=== PATIENT | female | born 1990 | race Caucasian/White ===

== ENCOUNTER 2020-05-09 00:06 | Emergency (ER) | payer MEDICAID, SELFPAY ==
[2020-05-09 00:16] VITALS: BP 124/88; PULSE 80; RESP 18; TEMP 37.1; O2SAT 99; BMI 25.8
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
[2020-05-09 01:02] VITALS: BP 106/65; PULSE 72; RESP 15; O2SAT 99
[2020-05-09] MEDS: Ketorolac Tromethamine 60 MG/2 ML VIAL IM (01:36)
== END 2020-05-09 02:19 | disposition home or self-care (01) ==
PROVIDERS: Emergency Provider Emergency Medicine
DX: S13.9XXA Sprain of joints and ligaments of unspecified parts of neck, initial encounter (principal); M54.2 Cervicalgia; V43.52XA Car driver injured in collision with other type car in traffic accident, initial encounter; Y92.410 Unspecified street and highway as the place of occurrence of the external cause
CPT/HCPCS: 72040; 96372; 99284; J1885

== ENCOUNTER 2020-06-07 15:13 | Outpatient (REF) | payer MEDICAID, SELFPAY | END 2020-06-07 15:14 | disposition home or self-care (01) | LOC: HO.LAB 15:13 | PROVIDERS: Visit Provider Internal Medicine | DX: Z20.828 Contact with and (suspected) exposure to other viral communicable diseases (principal) | CPT/HCPCS: C9803; U0003 ==

== ENCOUNTER 2020-10-07 10:12 | Emergency (ER) | payer MEDICAID, SELFPAY ==
[2020-10-07 10:40] VITALS: BP 116/68; PULSE 74; RESP 16; TEMP 37.1; O2SAT 99; BMI 26.5
--- NOTE | 2020-10-07 11:13 | ED.HA ---
HPI - Headache General Chief Complaint: Headache Stated Complaint: HEADACHE,NAUSEA Time Seen by Provider: 10/07/20 10:41 Source: patient Mode of arrival: ambulatory Limitations: no limitations History of Present Illness HPI Narrative: 30 y/o female with history of anemia presents with frontal headache for the last 2 days. She states she woke up with it. It is associated with nausea, vomiting, photophobia and sensitivity to noise. She took Tylenol and nausea medication yesterday with some improvement but woke up this morning and it was worse again. 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 She tested negative for COVID there today. She was sent home for worsening headache. No fever, chills, abdominal pain, cough, SOB, dizziness, numbness, tingling or trauma. No history of migraines. MD elicited complaint: headache Onset (ago): day(s) (2) Onset description: suddenly Location: frontal Severity: moderate Quality & Timing: aching and throbbing Exacerbating factors: light, noise and other (bending down) Relieving factors: dark room and other (tylenol ) Context: occurred at rest Associated symptoms: nausea, vomiting, photophobia and sensitivity to sound Treatments prior to arrival: none Related Data Previous Rx's Medication Instructions Recorded cyclobenzaprine 10 mg PO BEDTIME PRN #10 tab 05/09/20 ibuprofen 600 mg PO Q8H PRN #10 tab 05/09/20 kdbjrcuhmp-xpbllljubcwgd-qwkm 1 cap PO Q6H PRN #10 cap 10/07/20 [Fioricet] ondansetron HCl [Zofran] 4 mg PO Q8H PRN #8 tab 10/07/20 Allergies Allergy/AdvReac Type Severity Reaction Status Date / Time No Known Allergies Allergy Verified 05/09/20 00:15 [No Known Allergies*] Review of Systems Review of Systems: Constitutional: No Fever, No Chills ENT/Mouth: No sore throat, No Rhinorrhea, No Swallowing Difficulty Eyes: No Eye Pain, No Swelling, No Redness Cardiovascular: No Chest Pain, No SOB, No Orthopnea, No Edema Respiratory: No Cough, No Sputum, No Wheezing, No dyspnea Gastrointestinal: + Nausea, + Vomiting, No Diarrhea, No abdominal Pain, No Hematochezia, No Melena Genitourinary: No Dysuria, No Urinary Frequency, No Hematuria Musculoskeletal: No joint pain, No Myalgias Skin: No Skin Lesions, No rash Neuro: + Weakness (generalized), No Numbness, No Dizziness, + Headache Psych: No Anxiety/Panic, No Depression Heme/Lymph: No Bruising, No Lymphadenopathy Endocrine: No Polyuria, No Polydipsia PMF Past Medical History Attestation statement: The following information was validated with the patient. Medical History Anemia Social History Social History Alcohol intake: unknown Smoking Status: Never smoker Use of substances other than those prescribed or required for medical reasons: No Advance Directives: No Advance Directives Information Provided: No Physical Exam Vital Signs: Vital Signs: Last Vital Signs Temp 98.7 F 10/07/20 10:40 Pulse 74 10/07/20 10:40 Resp 16 10/07/20 10:40 BP 116/68 10/07/20 10:40 Pulse Ox 99 10/07/20 10:40 Body Mass Index 26.5 Appearance: Alert. Oriented X3. No acute distress. Eyes: Pupils equal, round and reactive to light. EMOI, no nystagmus ENT: Pharynx normal. Neck: Normal inspection. Neck supple. CVS: Normal heart rate and rhythm. Pulses normal. Respiratory: No respiratory distress. Breath sounds normal. Abdomen: Soft and nontender. +BS x4 Skin: Skin warm and dry. Normal skin color. Normal skin turgor. No rashes. Extremities: No lower extremity edema. Neuro: Oriented X 3. No motor deficit. No sensory deficit. Steady gait. Course Course Course Narrative: 30 y/o female presenting with headache, N/V and photophobia. Clinical picture consistent with migraine headache. Will treat with Toradol, Benadryl and Reglan as well as IVF. She appears well. No signs/symptoms of meningitis. No AMS or focal deficits. Will check labs and urine . Patient agreeable with plan. Reevaluation(s) Reevaluation #1: Lab workup is unremarkable. Her symptoms have significantly improved. She is stable for discharge with plans to f/u with her PCP this week. Fiorcet and Zofran rx provided. Patient agrees with plan. MDM - Headache Lab Data Result diagrams: 10/07/20 11:16 10/07/20 11:16 Labs: Lab Results 10/07/20 10/07/20 10/07/20 Range/Units 11:16 11:16 11:36 WBC 7.1 (4.8-10.8) X10*3/uL RBC 4.02 L (4.20-5.50) X10*6/uL Hgb 12.7 (12.0-16.0) g/dl Hct 39.1 (37-47) % MCV 97.3 (80-98) fL MCH 31.6 (27.0-33.0) pg MCHC 32.5 (31.0-35.0) g/dl RDW 11.7 (11.0-16.0) % Plt Count 205 (160-400) X10*3/uL MPV 11.4 (9.4-12.3) fL Immature Gran % (Auto) 0.1 (0.0-0.4) % Neut % (Auto) 64.6 (45-73) % Lymph % (Auto) 22.6 (20-40) % [place] % (Auto) 11.3 H (2-11) % Eos % (Auto) 1.1 (0-4) % Baso % (Auto) 0.3 (0-2) % Lymph # (Auto) 1.6 (1.2-4.9) X10*3/uL [place] # (Auto) 0.8 (0.1-1.2) X10*3/uL Eos # (Auto) 0.1 (0.0-0.4) X10*3/uL Baso # (Auto) 0.0 (0.0-0.2) X10*3/uL Abs Immat Gran (auto) 0.01 (0.00-0.03) X10*3/uL Absolute Neuts (auto) 4.6 (2.0-8.3) X10*3/uL Absolute Nucleated RBC 0.000 (0.0-0.012) X10*3/uL Nucleated RBC % (auto) 0.0 (0.0-0.2) /100WBC Sodium 141 (135-145) mmol/L Potassium 4.6 (3.3-5.1) mmol/L Chloride 109 H (96-108) mmol/L Carbon Dioxide 24 (22-29) mmol/L Anion Gap 13 (12-20) BUN 14 (9-16) mg/dL Creatinine 0.83 (0.5-1.4) mg/dL Estim Creat Clear Calc 92.6 Estimated GFR > 60 Random Glucose 77 (60-115) mg/dL Calcium 8.7 (8.4-10.2) mg/dL Magnesium 1.8 (1.6-2.6) mg/dL Total Bilirubin 0.7 (0.0-1.0) mg/dL Direct Bilirubin 0.2 (0.0-0.5) mg/dL AST 18 (5-31) U/L ALT 10 (0-31) U/L Alkaline Phosphatase 43 (39-117) U/L Total Protein 7.2 (6.5-8.0) g/dL Albumin 4.3 (3.5-5.0) g/dL Urine Color YELLOW Urine Appearance CLEAR Urine pH 6.0 (5.0-8.0) Ur Specific [place] 1.025 (1.005-1.025) Urine Protein NEG (NEG-TRACE) MG/DL Urine Glucose (UA) NEG (NEG) MG/DL Urine Ketones NEG (NEG) MG/DL Urine Blood NEG (NEG) Urine Nitrite NEG (NEG) Ur Leukocyte Esterase NEG (NEG) Urine Test (NEGATIVE) 10/07/20 Range/Units 11:36 WBC (4.8-10.8) X10*3/uL RBC (4.20-5.50) X10*6/uL Hgb (12.0-16.0) g/dl Hct (37-47) % MCV (80-98) fL MCH (27.0-33.0) pg MCHC (31.0-35.0) g/dl RDW (11.0-16.0) % Plt Count (160-400) X10*3/uL MPV (9.4-12.3) fL Immature Gran % (Auto) (0.0-0.4) % Neut % (Auto) (45-73) % Lymph % (Auto) (20-40) % [place] % (Auto) (2-11) % Eos % (Auto) (0-4) % Baso % (Auto) (0-2) % Lymph # (Auto) (1.2-4.9) X10*3/uL [place] # (Auto) (0.1-1.2) X10*3/uL Eos # (Auto) (0.0-0.4) X10*3/uL Baso # (Auto) (0.0-0.2) X10*3/uL Abs Immat Gran (auto) (0.00-0.03) X10*3/uL Absolute Neuts (auto) (2.0-8.3) X10*3/uL Absolute Nucleated RBC (0.0-0.012) X10*3/uL Nucleated RBC % (auto) (0.0-0.2) /100WBC Sodium (135-145) mmol/L Potassium (3.3-5.1) mmol/L Chloride (96-108) mmol/L Carbon Dioxide (22-29) mmol/L Anion Gap (12-20) BUN (9-16) mg/dL Creatinine (0.5-1.4) mg/dL Estim Creat Clear Calc Estimated GFR Random Glucose (60-115) mg/dL Calcium (8.4-10.2) mg/dL Magnesium (1.6-2.6) mg/dL Total Bilirubin (0.0-1.0) mg/dL Direct Bilirubin (0.0-0.5) mg/dL AST (5-31) U/L ALT (0-31) U/L Alkaline Phosphatase (39-117) U/L Total Protein (6.5-8.0) g/dL Albumin (3.5-5.0) g/dL Urine Color Urine Appearance Urine pH (5.0-8.0) Ur Specific [place] (1.005-1.025) Urine Protein (NEG-TRACE) MG/DL Urine Glucose (UA) (NEG) MG/DL Urine Ketones (NEG) MG/DL Urine Blood (NEG) Urine Nitrite (NEG) Ur Leukocyte Esterase (NEG) Urine Test NEGATIVE (NEGATIVE) Discharge Plan Discharge Clinical Impression: Migraine Qualifiers: Migraine type: unspecified Status migrainosus presence: without status migrainosus Intractability: not intractable Qualified Code(s): G43.909 - Migraine, unspecified, not intractable, without status migrainosus Patient Disposition: Home, Self-Care Instructions: Migraine Headache (ED) Additional Instructions: Your lab workup today was normal. Rest and stay hydrated. Take the prescribed medications as needed for headaches and nausea. Follow up with your doctor this week. If you have recurrence of severe symptoms come back to the ER for further evaluation. Prescriptions: New ondansetron HCl [Zofran] 4 mg tablet 4 mg PO Q8H PRN (Reason: nausea and vomiting) Qty: 8 RF: 0 imwqdazoks-cdvecpfenzrdi-mqhs [Fioricet] 50-300-40 mg capsule 1 cap PO Q6H PRN (Reason: pain) Qty: 10 RF: 0 No Action ibuprofen 600 mg tablet 600 mg PO Q8H PRN (Reason: pain) Qty: 10 RF: 0 cyclobenzaprine 10 mg tablet 10 mg PO BEDTIME PRN (Reason: muscle spasm) Qty: 10 RF: 0
[2020-10-07 11:24] LABS: Basophils Percent Auto 0.3 % (0-2); Eosinophils Absolute Auto 0.1 X10*3/uL (0.0-0.4); Eosinophils Percent Auto 1.1 % (0-4); Hematocrit 39.1 % (37-47); Hemoglobin 12.7 g/dl (12.0-16.0); Imm Gran Abs Auto 0.01 X10*3/uL (0.00-0.03); Imm Gran Pct Auto 0.1 % (0.0-0.4); Lymphocytes Absolute Auto 1.6 X10*3/uL (1.2-4.9); Lymphocytes Percent Auto 22.6 % (20-40); MANUAL DIFF FLAG NO; Mean Corpuscular HGB Conc 32.5 g/dl (31.0-35.0); Mean Corpuscular Hemoglobin 31.6 pg (27.0-33.0); Mean Corpuscular Volume 97.3 fL (80-98); Mean Platelet Volume 11.4 fL (9.4-12.3); Monocytes Absolute Auto 0.8 X10*3/uL (0.1-1.2); Monocytes Percent Auto 11.3 % (2-11); Neutrophils Absolute Auto 4.6 X10*3/uL (2.0-8.3); Neutrophils Percent Auto 64.6 % (45-73); Platelet Count 205 X10*3/uL (160-400); Red Blood Count 4.02 X10*6/uL (4.20-5.50); Red Cell Distribution Width 11.7 % (11.0-16.0); White Blood Count 7.1 X10*3/uL (4.8-10.8)
[2020-10-07] MEDS: diphenhydrAMINE HCL 50 MG/ML VIAL 25 MG IVPUSH (11:29)
[2020-10-07] MEDS: Metoclopramide HCl 10 MG/2 ML VIAL IVPUSH (11:29)
[2020-10-07] MEDS: 0.9 % Sodium Chloride 1,000 ML 999 ML IVCONT (11:29)
[2020-10-07] MEDS: Ketorolac Tromethamine 30 MG/ML VIAL IVPUSH (11:29)
[2020-10-07 11:50] LABS: Appearance Urine CLEAR; Color Urine YELLOW; Glucose Urine UA NEG (NEG); Leukocyte Esterase Urine NEG (NEG); Nitrite Urine NEG (NEG); Specific Gravity - Urine 1.025 (1.005-1.025); Urine Blood NEG (NEG); Urine Ketones NEG (NEG); Urine Protein NEG (NEG-TRACE)
[2020-10-07 11:50] LABS: Alanine Aminotransferase 10 U/L (0-31); Albumin Level 4.3 g/dL (3.5-5.0); Alkaline Phosphatase 43 U/L (39-117); Anion Gap 13 (12-20); Aspartate Amino Transferase 18 U/L (5-31); Bilirubin Direct 0.2 mg/dL (0.0-0.5); Bilirubin Total 0.7 mg/dL (0.0-1.0); Blood Urea Nitrogen 14 mg/dL (9-16); Calcium 8.7 mg/dL (8.4-10.2); Carbon Dioxide 24 mmol/L (22-29); Chloride 109 mmol/L (96-108); Creatinine Clr Calc Pharmacy 92.6; Estimated Glomerular Filt Rate > 60; Glucose Random 77 mg/dL (60-115); Magnesium 1.8 mg/dL (1.6-2.6); Potassium 4.6 mmol/L (3.3-5.1); Sodium 141 mmol/L (135-145); Total Protein 7.2 g/dL (6.5-8.0)
[2020-10-07 11:51] LABS: UPreg QC Valid YES; Urine Pregnancy NEGATIVE (NEGATIVE)
--- NOTE | 2020-10-07 12:45 | PC.NURSE ---
pt reports feeling much better, denies pain at this time.
[2020-10-07 15:27] VITALS: BP 117/59; PULSE 74; RESP 18; O2SAT 100
== END 2020-10-07 15:28 | disposition home or self-care (01) ==
PROVIDERS: Physician Assistant; Emergency Provider Emergency Medicine
DX: G43.909 Migraine, unspecified, not intractable, without status migrainosus (principal); Z79.899 Other long term (current) drug therapy
CPT/HCPCS: 36415; 80048; 80076; 81003; 81025; 83735; 85025; 96365; 96375; 99284; J1200; J1885; J2765

== ENCOUNTER 2020-10-08 12:21 | Outpatient (REF) | payer MEDICAID, SELFPAY | END 2020-10-08 12:22 | disposition home or self-care (01) | LOC: HO.MAMMO 12:21 | PROVIDERS: PCP Nurse Practitioner Primary Care; Visit Provider Nurse Practitioner Primary Care | DX: Z13.89 Encounter for screening for other disorder (principal) ==

== ENCOUNTER 2020-10-17 09:03 | Outpatient (REF) | payer MEDICAID, SELFPAY ==
--- NOTE | ~2020-10-17 | US_ITS ---
EXAMINATION: US DIAGNOSTIC ULTRASOUND BREAST, LEFT CLINICAL INFORMATION: Intermittent left breast pain over 2 years lower outer quadrant. Patient notes no palpable abnormality or discharge. No prior breast imaging. Age 30. COMPARISON: None. TECHNIQUE: Ultrasound left breast is targeted to the area of clinical concern lower outer quadrant. Patient is able to point to region of symptoms at time of imaging. FINDINGS: There is no focal suspicious finding. There is no cystic or solid mass, architectural abnormality, duct ectasia, or edema in the soft tissue planes. Results are discussed with the patient at time of visit. US/US breast LT limited IMPRESSION: Normal study. ASSESSMENT: BI-RADS 1: Negative RECOMMENDATION: 1. Patient's intermittent left breast pain should be managed based on the clinical impression. 2. Routine screening mammography at age 40, or earlier as clinical risk factors warrant.
== END 2020-10-17 09:04 | disposition home or self-care (01) ==
LOC: HO.MAMMO 09:03
PROVIDERS: PCP Nurse Practitioner Primary Care; Visit Provider Nurse Practitioner Primary Care
DX: N64.4 Mastodynia (principal); N63.24 Unspecified lump in the left breast, lower inner quadrant
CPT/HCPCS: 76642

== ENCOUNTER 2021-01-20 23:10 | Emergency (ER) | payer MEDICAID, SELFPAY ==
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
[2021-01-20 23:14] VITALS: BP 130/90; PULSE 125; O2SAT 100
[2021-01-20 23:17] VITALS: BP 117/57; PULSE 116; RESP 16; TEMP 36.6; O2SAT 99; BMI 24.0
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
== END 2021-01-21 00:28 | disposition left against medical advice (07) ==
PROVIDERS: Emergency Provider Internal Medicine
DX: M54.5 Low back pain (principal); M79.651 Pain in right thigh
CPT/HCPCS: 72020; 73552; 99283; 99284

== ENCOUNTER 2021-07-10 10:49 | Outpatient (REF) | payer MEDICAID, SELFPAY ==
[2021-07-11 01:29] LABS: CT PCR NOT DETECTED (Not Detect.); NG PCR NOT DETECTED (Not Detect.)
[2021-07-11 11:06] LABS: BV Int Neg Control Negative (Negative); BV Int Pos Control Positive (Positive)
== END 2021-07-10 10:50 | disposition home or self-care (01) ==
LOC: HO.LAB 10:49
PROVIDERS: Visit Provider Advanced Practice Midwife
DX: Z01.411 Encounter for gynecological examination (general) (routine) with abnormal findings (principal); R10.2 Pelvic and perineal pain; Z98.890 Other specified postprocedural states; N89.8 Other specified noninflammatory disorders of vagina; Z20.2 Contact with and (suspected) exposure to infections with a predominantly sexual mode of transmission; Z97.5 Presence of (intrauterine) contraceptive device; Z98.891 History of uterine scar from previous surgery
CPT/HCPCS: 87086; 87480; 87491; 87510; 87591; 87660; 99212

== ENCOUNTER 2021-09-24 10:23 | Outpatient (REF) | payer MEDICAID, SELFPAY ==
--- NOTE | ~2021-09-24 | US_ITS ---
EXAMINATION: US PELVIC AND TRANSVAGINAL CLINICAL INFORMATION: Pelvic pain, IUD and vaginal discharge. COMPARISON: None TECHNIQUE: Ultrasound of the pelvis is performed using both transabdominal and transvaginal transducers along with Doppler. Transvaginal imaging is performed due to inadequate visualization transabdominally. FINDINGS: Uterus: The uterus is anteverted, anteflexed and measures 8.0 cm in length, 3.7 cm in AP and 3.3 cm in transverse dimension. The double wall endometrial thickness is 0.6 cm. The uterus is smooth in contour and has normal myometrial echogenicity. No visible fibroid. There are nabothian cysts and echogenic calcification seen in the cervix. Also visualized is an IUD in correct position within the endometrial canal. Adnexa: Both ovaries are visualized. There is normal color-flow to the adnexa. There is no ovarian torsion. There is no pelvic ascites or fluid collection. Right ovary measures 2.9 x 1.5 x 1.9 cm and volume 4.3 mL. It appears unremarkable. Previously, the right ovary measured 3.3 x 1.9 x 1.8 cm. Left ovary measures 3.2 x 2.1 x 2.8 cm and volume 9.8 mL. There is an anechoic cyst measuring 1.9 x 1.6 x 1.9 cm. Previously, the left ovary measured 3.2 x 1.6 x 3.0 cm. There is no free fluid in the cul-de-sac. US/US pelvic and transvaginal IMPRESSION: 1.9 cm anechoic cyst left ovary. The right ovary is unremarkable. There are echogenic calcifications, nabothian cysts in the cervix. There is an IUD well located within the endometrial canal. The uterus is otherwise unremarkable.
== END 2021-09-24 10:24 | disposition home or self-care (01) ==
LOC: HO.US 10:23
PROVIDERS: PCP Nurse Practitioner Primary Care; Visit Provider Advanced Practice Midwife
DX: R10.2 Pelvic and perineal pain (principal); N89.8 Other specified noninflammatory disorders of vagina; Z98.890 Other specified postprocedural states; Z97.5 Presence of (intrauterine) contraceptive device
CPT/HCPCS: 76830; 76856

== ENCOUNTER → 2022-01-07 11:38 | Outpatient (BNVA) | payer MEDICAID, SELFPAY | PROVIDERS: PCP Nurse Practitioner Primary Care; Visit Provider Surgery Vascular Surgery | DX: I83.12 Varicose veins of left lower extremity with inflammation (principal) | CPT/HCPCS: 99202 ==

== ENCOUNTER 2022-05-16 10:09 | Outpatient (REF) | payer MEDICAID, SELFPAY ==
--- NOTE | ~2022-05-16 | US_ITS ---
EXAMINATION: US LOWER EXTREMITY VENOUS (REFLUX EXAM), BILATERAL CLINICAL INDICATION: This is a 31-year-old female with venous insufficiency. Varicose veins. Inflammation. Edema. COMPARISON: None. TECHNIQUE: Color flow triplex imaging and compression Doppler was performed to evaluate both the deep and the superficial systems bilaterally. To evaluate the superficial system, the examination was performed in the upright position. Color-flow Doppler ultrasound and compression ultrasound were utilized. In addition, maneuvers were utilized to demonstrate reflux. FINDINGS: 1. DEEP VENOUS ULTRASOUND OF THE RIGHT LOWER EXTREMITY: Common Femoral Vein: Compressible, normal respiratory variation and augmented flow. Femoral vein: Compressible, normal color flow and augmentation. Popliteal Vein: Compressible, normal augmentation. Deep Reflux: There is no evidence of reflux in the deep system in either the common femoral vein or the popliteal vein. There is no evidence of a Mitchell's cyst. 2. SUPERFICIAL ULTRASOUND WITH DOPPLER OF RIGHT LOWER EXTREMITY: GREAT SAPHENOUS VEIN: Saphenofemoral Junction: 0.6 cm. There is no reflux. Mid Thigh: 0.2 cm. There is no reflux. Above Knee: 0.2 cm. There is no reflux. Below Knee: 0.3 cm. The reflux time is 3280 ms. Mid Calf: 0.1 cm. There is no reflux. Ankle: 0.2 cm. There is no reflux. GSV REFLUX: There is isolated reflux at and below the knee. There is no reflux at the junction. DUPLICATED GREAT SAPHENOUS VEIN: There is a 0.2 cm duplicated lateral great saphenous vein without reflux. SMALL SAPHENOUS VEIN: Proximal: 0.3 cm Distal: 0.2 cm SSV REFLUX: No evidence of reflux. VEIN OF GIACOMINI: None Imaged. PERFORATORS: None Imaged VARICOSITIES: None Imaged 3. DEEP VENOUS ULTRASOUND OF THE LEFT LOWER EXTREMITY: Common Femoral Vein: Compressible, normal respiratory variation and augmented flow. Femoral Vein: Compressible, normal color flow and augmentation. Popliteal Vein: Compressible, normal augmentation. Deep Reflux: There is no evidence of reflux in the deep system in either the common femoral vein or the popliteal vein. There is no evidence of a Mitchell's cyst. 4. SUPERFICIAL ULTRASOUND WITH DOPPLER OF LEFT LOWER EXTREMITY: GREAT SAPHENOUS VEIN: Saphenofemoral Junction: 0.6 cm Mid Thigh: 0.3 cm Above Knee: 0.4 cm Below Knee: 0.1 cm Mid Calf: 0.1 cm Ankle: 0.2 cm GSV REFLUX: No evidence of reflux. DUPLICATED GREAT SAPHENOUS VEIN: There is a 0.4 cm duplicated lateral great saphenous vein without reflux. SMALL SAPHENOUS VEIN: Proximal: 0.3 cm Distal: 0.2 cm SSV REFLUX: No evidence of reflux. VEIN OF GIACOMINI: None Imaged. PERFORATORS: None Imaged VARICOSITIES: None Imaged US/US venous duplex LE BI IMPRESSION: 1. There are patent bilateral great saphenous veins and small saphenous veins without evidence of reflux at the junctions, respectively.
== END 2022-05-16 10:10 | disposition home or self-care (01) ==
LOC: HO.US 10:09
PROVIDERS: PCP Nurse Practitioner Primary Care; Visit Provider Surgery Vascular Surgery
DX: I83.12 Varicose veins of left lower extremity with inflammation (principal)
CPT/HCPCS: 93970

== ENCOUNTER 2022-08-11 11:36 | Emergency (ER) | payer MEDICAID, SELFPAY ==
--- NOTE | ~2022-08-11 | US_ITS ---
EXAMINATION: US PELVIS CLINICAL INFORMATION: Pelvic pain COMPARISON: 09/24/2021 TECHNIQUE: Ultrasound of the pelvis is performed using both transabdominal and transvaginal transducers. Transvaginal imaging is performed due to inadequate visualization transabdominally. FINDINGS: Uterus: The uterus is anteverted and anteflexed and measures 8.1 x 3.6 x 4.3 cm. And IUD is seen satisfactorily positioned. The endometrium is correspondingly thin, 2-3 mm. The uterus is smooth in contour and has normal myometrial echogenicity. No visible fibroid. Adnexa: Both ovaries are visualized. There is no pelvic ascites or fluid collection. Right ovary measures 2.9 x 1.9 x 2.0 cm. No right adnexal mass. Left ovary measures 3.3 x 2.3 x 3.3 cm. No left adnexal mass. US/US pelvic and transvaginal IMPRESSION: IUD seen in the uterus. Normal appearance of both ovaries.
[2022-08-11 12:05] VITALS: BP 112/62; PULSE 76; RESP 18; TEMP 36.5; O2SAT 96; BMI 31.1
--- NOTE | 2022-08-11 12:05 | ED_ITS ---
HPI - General Adult General Chief complaint: Abdominal Pain <ANDRES Mayo - Last Filed: 08/11/22 19:22> Stated complaint: vaginal pain bloody discharge <ANDRES Mayo - Last Filed: 08/11/22 19:22> Time Seen by Provider: 08/11/22 12:31 <ANDRES Mayo - Last Filed: 08/11/22 19:22> Source: patient <Tayler Bell NP - Last Filed: 08/11/22 14:51> Mode of arrival: ambulatory <Tayler Bell NP - Last Filed: 08/11/22 14:51> Limitations: no limitations <Tayler Bell NP - Last Filed: 08/11/22 14:51> History of Present Illness HPI narrative: 31 yo female here with 3 days of suprapubic discomfort, milky/blood vaginal discharge. No fevers, chills, urinary symptoms, nausea, vomiting. Patient is sexually active with one male partner. Does not use condoms. Does have a mirena IUD. This is not a new sexual partner. LMP end of June <Tayler Bell NP - Last Filed: 08/11/22 14:51> Related Data Home medications: Home Medications Medication Instructions Recorded Confirmed levonorgestrel 20 mcg/24 hours (8 intrauterine 07/10/21 07/10/21 yrs) 52 mg intrauterine device (Mirena) cholecalciferol (vitamin D3) 25 25 mcg PO DAILY 01/07/22 mcg (1,000 unit) tablet ketoconazole 2 % shampoo topical 3XW 01/07/22 Previous Rx's Medication Instructions Recorded cyclobenzaprine 10 mg tablet 10 mg PO BEDTIME PRN muscle spasm 05/09/20 #10 tabs ibuprofen 600 mg tablet 600 mg PO Q8H PRN pain #10 tabs 05/09/20 [id number]-[id number] 1 cap PO Q6H PRN pain #10 caps 10/07/20 50 mg-300 mg-40 mg capsule (Fioricet) fluconazole 150 mg tablet 150 mg PO DAILY 1 dose #1 tab 07/15/21 (Diflucan) doxycycline monohydrate 100 mg 100 mg PO BID #28 caps 08/11/22 capsule metronidazole 500 mg tablet 500 mg PO BID 14 days #28 tabs 08/11/22 <ANDRES Mayo - Last Filed: 08/11/22 19:22> Allergies/adverse reactions: Allergies Allergy/AdvReac Type Severity Reaction Status Date / Time No Known Allergies Allergy Verified 01/07/22 11:41 [No Known Allergies*] <ANDRES Mayo - Last Filed: 08/11/22 19:22> Review of Systems Review of Systems: Yes all other systems are reviewed and are negative <Tayler Bell NP - Last Filed: 08/11/22 14:51> Constitutional: Constitutional: Reports no additional constitutional complaints, Denies body ache(s), Denies chills, Denies fever(s), Denies headache(s) and Denies weakness <Tayler Bell NP - Last Filed: 08/11/22 14:51> Eyes: Eyes: Reports no additional eye complaints and Denies change in vision <Tayler Bell NP - Last Filed: 08/11/22 14:51> ENT: Reports system reviewed and no additional complaints, except as documented, Denies dizziness, Denies headache(s), Denies nasal congestion, Denies nasal discharge and Denies neck pain <Tayler Bell NP - Last Filed: 08/11/22 14:51> Cardiovascular: Cardiovascular: Reports no additional cardiovascular complaints, Denies chest pain, Denies leg edema and Denies dyspnea <Tayler Bell NP - Last Filed: 08/11/22 14:51> Respiratory: Respiratory: Reports no additional respiratory complaints, Denies cough and Denies dyspnea <Tayler Bell NP - Last Filed: 08/11/22 14:51> Gastrointestinal: Gastrointestinal: Reports no additional gastrointestinal complaints, Denies abdominal pain, Denies diarrhea, Denies nausea and Denies vomiting <Tayler Bell NP - Last Filed: 08/11/22 14:51> Genitourinary: Genitourinary: Reports no additional female genitourinary complaints, Denies dysuria, Reports pelvic pain, Denies flank pain, Denies urinary incontinence, Denies urinary hesitancy, Denies urinary urgency, Reports vaginal discharge, Denies vaginal dryness and Denies vaginal odor <Tayler Bell NP - Last Filed: 08/11/22 14:51> Musculoskeletal: Musculoskeletal: Reports no additional musculoskeletal co mplaints, Denies back pain, Denies arthralgias, Denies joint swelling, Denies neck pain, Denies numbness and Denies tingling <Tayler Bell NP - Last Filed: 08/11/22 14:51> Integumentary/Breasts: Skin/Breast: Reports system reviewed and no additional complaints, except as docu and Denies rash <Tayler Bell NP - Last Filed: 08/11/22 14:51> Neurologic: Reports system reviewed and no additional complaints, except as documented, Denies dizziness, Denies headache(s), Denies numbness, Denies tingling and Denies weakness <Tayler Bell NP - Last Filed: 08/11/22 14:51> PMFSH Past Medical History Attestation statement: The following information was validated with the patient. <Tayler Bell NP - Last Filed: 08/11/22 14:51> Source: old records reviewed and nursing notes reviewed <Tayler Bell NP - Last Filed: 08/11/22 14:51> Medical History: Medical History Anemia <ANDRES Mayo - Last Filed: 08/11/22 19:22> Surgical History: Surgical History H/O bladder repair surgery History of section, low transverse Hx of cosmetic plastic surgery <ANDRES Mayo - Last Filed: 08/11/22 19:22> Social History Social History: Social History Alcohol intake: unknown Patient Tobacco Use Status: Never used Tobacco Smoked in Last 30 Days: No Use of substances other than those prescribed or required for medical reasons: Unknown Advance Directives: No Advance Directives Information Provided: No Gender identity: Female <ANDRES Mayo - Last Filed: 08/11/22 19:22> Physical Exam ED Vital Signs: Vital Signs - 24 hr 08/11/22 12:05 Temperature 97.7 F Pulse Rate 76 Respiratory Rate 18 Blood Pressure 112/62 Pulse Oximetry 96 Oxygen Delivery Method Room Air BMI result Body Mass Index 31.1 <ANDRES Mayo - Last Filed: 08/11/22 19:22> Vital Signs - 24 hr 08/11/22 12:05 Temperature 97.7 F Pulse Rate 76 Respiratory Rate 18 Blood Pressure 112/62 Pulse Oximetry 96 Oxygen Delivery Method Room Air BMI result Body Mass Index 31.1 <Tayler Bell NP - Last Filed: 08/11/22 14:51> Const General: cooperative, healthy appearing, comfortable and no acute distress <Tayler Bell NP - Last Filed: 08/11/22 14:51> Orientation/consciousness: patient oriented x3 <Tayler Bell NP - Last Filed: 08/11/22 14:51> Limitations: no limitations <Tayler Bell NP - Last Filed: 08/11/22 14:51> HENMT Head: Yes normal to inspection <Tayler Bell NP - Last Filed: 08/11/22 14:51> Ears: hearing grossly normal bilaterally <Tayler Bell NP - Last Filed: 08/11/22 14:51> Eyes General: appearance normal, both eyes and all related structures <Tayler Bell NP - Last Filed: 08/11/22 14:51> Pupils: Equal, round and reactive pupils present <Tayler Bell NP - Last Filed: 08/11/22 14:51> Neck Neck: Yes normal visual inspection, Yes full ROM, Yes no lymphadenopathy and Yes no meningeal signs <Tayler Bell NP - Last Filed: 08/11/22 14:51> Chest Chest palpation & inspection: normal inspection of the chest <Tayler Bell NP - Last Filed: 08/11/22 14:51> Resp Effort & Inspection: normal respiratory effort <Tayler Bell NP - Last Filed: 08/11/22 14:51> Auscultation: clear to auscultation bilaterally <Tayler Bell NP - Last Filed: 08/11/22 14:51> Cardio Rate: regular rate <Tayler Bell NP - Last Filed: 08/11/22 14:51> Rhythm: regular rhythm <Tayler Bell NP - Last Filed: 08/11/22 14:51> Peripheral pulses: Peripheral pulses 2+ throughout <Tayler Bell NP - Last Filed: 08/11/22 14:51> GI Inspection: Yes normal to inspection <Tayler Bell [employer] SETTER APPRENTICE - Last Filed: 08/11/22 14:51> Palpation (GI): Soft to palpation and nontender <Tayler Bell NP - Last Filed: 08/11/22 14:51> Other: +CMT and +adnexal tenderness bilaterally 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[employer] <Tayler Bell [employer] SETTER APPRENTICE - Last Filed: 08/11/22 14:51> General: Yes no CVA tenderness <Tayler Bell NP - Last Filed: 08/11/22 14:51> External Female Exam: normal external appearance <Tayler Bell NP - Last Filed: 08/11/22 14:51> Speculum Exam - Vagina: normal appearance of the vagina <Tayler Bell NP - Last Filed: 08/11/22 14:51> Speculum Exam - Cervix: normal appearance of the cervix <Tayler Bell NP - Last Filed: 08/11/22 14:51> Bimanual Exam- Adnexa, other: normal adnexae <Tayler Bell NP - Last Filed: 08/11/22 14:51> Back/Spine/Pelvis Back: no CVA tenderness <Tayler Bell NP - Last Filed: 08/11/22 14:51> Thoracic/Lumbar Spine: thoracic and lumbar spine normal to inspection <Tayler Bell NP - Last Filed: 08/11/22 14:51> Skin General skin exam: no rashes or lesions noted <Tayler Bell NP - Last Filed: 08/11/22 14:51> Neuro General: patient oriented x3, moves all extremities and no meningeal signs <Tayler Bell NP - Last Filed: 08/11/22 14:51> Cranial nerves: Yes Equal, round and reactive pupils present <Tayler Bell NP - Last Filed: 08/11/22 14:51> Cognition (Neuro): normal cognition <Tayler Bell NP - Last Filed: 08/11/22 14:51> Gait exam (Neuro): Normal gait present <Tayler Bell NP - Last Filed: 08/11/22 14:51> Extrem General: Yes normal to inspection, Yes no pedal edema and Yes no calf tenderness <Tayler Bell NP - Last Filed: 08/11/22 14:51> Course Course Course Narrative: RME: patient presents to the ED for vaginal pain, suprapubic pain and white/bloody discharge. patient denies any abdominal pain, nausea, or vomitting. <ANDRES Mayo - Last Filed: 08/11/22 19:22> Reevaluation(s) Reevaluation #1: [id number]-[id number] unremarkable. UA negative for infection. STI swabs pending. Ultrasound negative. Patient with CMT/bilateral adnexal tenderness on exam. Consider PID. No TOA seen. Patient treated prophylactically with ceftriaxone 500mg IM. Will discharge home doxycycline/flagyl BID. Reviewed worrisome signs/symptoms with patient and when to seek additional care. Comfortable with plan for discharge home. <Tayler Bell NP - Last Filed: 08/11/22 14:51> Medications Administered Discontinued Medications Generic Name Dose Route Start Last Admin Trade Name Freq PRN Reason Stop Dose Admin Ceftriaxone Sodium 500 mg/ 0 mg 08/11/22 14:41 08/11/22 14:52 Lidocaine HCl 1 ml IM 08/11/22 14:42 1 kit ONCE ONE Administration <ANDRES Mayo - Last Filed: 08/11/22 19:22> Medications Administered Discontinued Medications Generic Name Dose Route Start Last Admin Trade Name Freq PRN Reason Stop Dose Admin Ceftriaxone Sodium 500 mg/ 0 mg 08/11/22 14:41 08/11/22 14:52 Lidocaine HCl 1 ml IM 08/11/22 14:42 1 kit ONCE ONE Administration <Tayler Bell NP - Last Filed: 08/11/22 14:51> Medical Decision Making Medical Decision Making MDM Narrative: 31yo female here with 3 days of pelvic pain/vaginal discharge. Will need labs, UA, ur preg, pelvic exam with testing for BV/CT NG, pelvic US <Tayler Bell NP - Last Filed: 08/11/22 14:51> Differential Diagnosis Differential Diagnoses: The differential diagnosis associated with the presentation includes <Tayler Bell NP - Last Filed: 08/11/22 14:51> TOA, STI <Tayler Bell NP - Last Filed: 08/11/22 14:51> Lab Data [facility] Lab Attestation statement: I reviewed the patient's lab results. <Tayler Bell NP - Last Filed: 08/11/22 14:51> Result Diagrams: 08/11/22 12:50 08/11/22 12:50 <ANDRES Mayo - Last Filed: 08/11/22 19:22> Labs: Lab Results 08/11/22 08/11/22 08/11/22 Range/Units 12:50 12:50 12:50 WBC 5.4 (4.8-10.8) X10*3/uL RBC 4.18 L (4.20-5.50) X10*6/uL Hgb 13.2 (12.0-16.0) g/dl Hct 40.1 (37.0-47.0) % MCV 95.9 (80.0-98.0) fL MCH 31.6 (27.0-33.0) pg MCHC 32.9 (31.0-35.0) g/dl RDW 12.2 (11.0-16.0) % Plt Count 242 (160-400) X10*3/uL MPV 10.8 (9.4-12.3) fL Immature Gran % (Auto) 0.4 (0.0-0.4) % Neut % (Auto) 56.1 (45-73) % Lymph % (Auto) 30.1 (20-40) % [place] % (Auto) 12.4 H (2-11) % Eos % (Auto) 0.6 (0-4) % Baso % (Auto) 0.4 (0-2) % Lymph # (Auto) 1.6 (1.2-4.9) X10*3/uL [place] # (Auto) 0.7 (0.1-1.2) X10*3/uL Eos # (Auto) 0.0 (0.0-0.4) X10*3/uL Baso # (Auto) 0.0 (0.0-0.2) X10*3/uL Abs Immat Gran (auto) 0.02 (0.00-0.03) X10*3/uL Absolute Neuts (auto) 3.1 (2.0-8.3) x10*3/uL Absolute Nucleated RBC 0.000 (0.0-0.012) X10*3/uL Nucleated RBC % (auto) 0.0 (0.0-0.2) /100WBC Sodium (135-145) mmol/L Potassium (3.3-5.1) mmol/L Chloride (96-108) mmol/L Carbon Dioxide (22-29) mmol/L Anion Gap (12-20) BUN (9-16) mg/dL Creatinine (0.5-1.4) mg/dL Estim Creat Clear Calc Estimated GFR Random Glucose (60-115) mg/dL Calcium (8.4-10.2) mg/dL Urine Color Yellow Urine Appearance Clear Urine pH 7.5 (5.0-9.0) Ur Specific [place] 1.020 (1.005-1.025) Urine Protein Negative (Neg-Trace) mg/dL Urine Glucose (UA) Negative (Negative) mg/dL Urine Ketones Negative (Negative) mg/dL Urine Blood Negative (Negative) Urine Nitrite Negative (Negative) Ur Leukocyte Esterase Negative (Negative) Urine Test NEGATIVE (NEGATIVE) Chlam trachomat DNA PCR (Not Detect.) N.gonorrhoeae DNA (PCR) (Not Detect.) 08/11/22 08/11/22 Range/Units 12:50 12:51 WBC (4.8-10.8) X10*3/uL RBC (4.20-5.50) X10*6/uL Hgb (12.0-16.0) g/dl Hct (37.0-47.0) % MCV (80.0-98.0) fL MCH (27.0-33.0) pg MCHC (31.0-35.0) g/dl RDW (11.0-16.0) % Plt Count (160-400) X10*3/uL MPV (9.4-12.3) fL Immature Gran % (Auto) (0.0-0.4) % Neut % (Auto) (45-73) % Lymph % (Auto) (20-40) % [place] % (Auto) (2-11) % Eos % (Auto) (0-4) % Baso % (Auto) (0-2) % Lymph # (Auto) (1.2-4.9) X10*3/uL [place] # (Auto) (0.1-1.2) X10*3/uL Eos # (Auto) (0.0-0.4) X10*3/uL Baso # (Auto) (0.0-0.2) X10*3/uL Abs Immat Gran (auto) (0.00-0.03) X10*3/uL Absolute Neuts (auto) (2.0-8.3) x10*3/uL Absolute Nucleated RBC (0.0-0.012) X10*3/uL Nucleated RBC % (auto) (0.0-0.2) /100WBC Sodium 140 (135-145) mmol/L Potassium 4.2 (3.3-5.1) mmol/L Chloride 107 (96-108) mmol/L Carbon Dioxide 24 (22-29) mmol/L Anion Gap 13 (12-20) BUN 8 L (9-16) mg/dL Creatinine 0.75 (0.5-1.4) mg/dL Estim Creat Clear Calc 105.4 Estimated GFR > 60 Random Glucose 85 (60-115) mg/dL Calcium 9.0 (8.4-10.2) mg/dL Urine Color Urine Appearance Urine pH (5.0-9.0) Ur Specific [place] (1.005-1.025) Urine Protein (Neg-Trace) mg/dL Urine Glucose (UA) (Negative) mg/dL Urine Ketones (Negative) mg/dL Urine Blood (Negative) Urine Nitrite (Negative) Ur Leukocyte Esterase (Negative) Urine Test (NEGATIVE) Chlam trachomat DNA PCR NOT DETECTED (Not Detect.) N.gonorrhoeae DNA (PCR) NOT DETECTED (Not Detect.) <ANDRES Mayo - Last Filed: 08/11/22 19:22> Lab Results 08/11/22 08/11/22 08/11/22 Range/Units 12:50 12:50 12:50 WBC 5.4 (4.8-10.8) X10*3/uL RBC 4.18 L (4.20-5.50) X10*6/uL Hgb 13.2 (12.0-16.0) g/dl Hct 40.1 (37.0-47.0) % MCV 95.9 (80.0-98.0) fL MCH 31.6 (27.0-33.0) pg MCHC 32.9 (31.0-35.0) g/dl RDW 12.2 (11.0-16.0) % Plt Count 242 (160-400) X10*3/uL MPV 10.8 (9.4-12.3) fL Immature Gran % (Auto) 0.4 (0.0-0.4) % Neut % (Auto) 56.1 (45-73) % Lymph % (Auto) 30.1 (20-40) % [place] % (Auto) 12.4 H (2-11) % Eos % (Auto) 0.6 (0-4) % Baso % (Auto) 0.4 (0-2) % Lymph # (Auto) 1.6 (1.2-4.9) X10*3/uL [place] # (Auto) 0.7 (0.1-1.2) X10*3/uL Eos # (Auto) 0.0 (0.0-0.4) X10*3/uL Baso # (Auto) 0.0 (0.0-0.2) X10*3/uL Abs Immat Gran (auto) 0.02 (0.00-0.03) X10*3/uL Absolute Neuts (auto) 3.1 (2.0-8.3) x10*3/uL Absolute Nucleated RBC 0.000 (0.0-0.012) X10*3/uL Nucleated RBC % (auto) 0.0 (0.0-0.2) /100WBC Sodium (135-145) mmol/L Potassium (3.3-5.1) mmol/L Chloride (96-108) mmol/L Carbon Dioxide (22-29) mmol/L Anion Gap (12-20) BUN (9-16) mg/dL Creatinine (0.5-1.4) mg/dL Estim Creat Clear Calc Estimated GFR Random Glucose (60-115) mg/dL Calcium (8.4-10.2) mg/dL Urine Color Yellow Urine Appearance Clear Urine pH 7.5 (5.0-9.0) Ur Specific [place] 1.020 (1.005-1.025) Urine Protein Negative (Neg-Trace) mg/dL Urine Glucose (UA) Negative (Negative) mg/dL Urine Ketones Negative (Negative) mg/dL Urine Blood Negative (Negative) Urine Nitrite Negative (Negative) Ur Leukocyte Esterase Negative (Negative) Urine Test NEGATIVE (NEGATIVE) Chlam trachomat DNA PCR (Not Detect.) N.gonorrhoeae DNA (PCR) (Not Detect.) 08/11/22 08/11/22 Range/Units 12:50 12:51 WBC (4.8-10.8) X10*3/uL RBC (4.20-5.50) X10*6/uL Hgb (12.0-16.0) g/dl Hct (37.0-47.0) % MCV (80.0-98.0) fL MCH (27.0-33.0) pg MCHC (31.0-35.0) g/dl RDW (11.0-16.0) % Plt Count (160-400) X10*3/uL MPV (9.4-12.3) fL Immature Gran % (Auto) (0.0-0.4) % Neut % (Auto) (45-73) % Lymph % (Auto) (20-40) % [place] % (Auto) (2-11) % Eos % (Auto) (0-4) % Baso % (Auto) (0-2) % Lymph # (Auto) (1.2-4.9) X10*3/uL [place] # (Auto) (0.1-1.2) X10*3/uL Eos # (Auto) (0.0-0.4) X10*3/uL Baso # (Auto) (0.0-0.2) X10*3/uL Abs Immat Gran (auto) (0.00-0.03) X10*3/uL Absolute Neuts (auto) (2.0-8.3) x10*3/uL Absolute Nucleated RBC (0.0-0.012) X10*3/uL Nucleated RBC % (auto) (0.0-0.2) /100WBC Sodium 140 (135-145) mmol/L Potassium 4.2 (3.3-5.1) mmol/L Chloride 107 (96-108) mmol/L Carbon Dioxide 24 (22-29) mmol/L Anion Gap 13 (12-20) BUN 8 L (9-16) mg/dL Creatinine 0.75 (0.5-1.4) mg/dL Estim Creat Clear Calc 105.4 Estimated GFR > 60 Random Glucose 85 (60-115) mg/dL Calcium 9.0 (8.4-10.2) mg/dL Urine Color Urine Appearance Urine pH (5.0-9.0) Ur Specific [place] (1.005-1.025) Urine Protein (Neg-Trace) mg/dL Urine Glucose (UA) (Negative) mg/dL Urine Ketones (Negative) mg/dL Urine Blood (Negative) Urine Nitrite (Negative) Ur Leukocyte Esterase (Negative) Urine Test (NEGATIVE) Chlam trachomat DNA PCR NOT DETECTED (Not Detect.) N.gonorrhoeae DNA (PCR) NOT DETECTED (Not Detect.) <Tayler Bell NP - Last Filed: 08/11/22 14:51> Independent Interpretation I performed an independent interpretation of an: Ultrasound <Tayler Bell NP - Last Filed: 08/11/22 14:51> Radiology Impression Discussion of test interpretation with radiology: I have reviewed the radiologist's reading. <Tayler Bell NP - Last Filed: 08/11/22 14:51> Discharge Plan Discharge Clinical Impression: Acute pelvic inflammatory disease <ANDRES Mayo - Last Filed: 08/11/22 19:22> Patient Disposition: Home, Self-Care <ANDRES Mayo - Last Filed: 08/11/22 19:22> Instructions: Pelvic Inflammatory Disease (DC) <ANDRES Mayo - Last Filed: 08/11/22 19:22> Additional Instructions: Your lab work and ultrasound are normal. No signs of infection in your urine. We sent testing for gonorrhea, chlamydia, trichomonas, bacterial vaginosis, yeast infection-these take 1-2 days for results. We will call you of positive. We are treating your prophylactically with antibiotics Return for worsening pain, fever, vomiting No unprotected sex until results are back <ANDRES Mayo - Last Filed: 08/11/22 19:22> Prescriptions: New doxycycline monohydrate 100 mg capsule 100 mg PO BID Qty: 28 0RF metronidazole 500 mg tablet 500 mg PO BID 14 Days Qty: 28 0RF No Action fluconazole [Diflucan] 150 mg tablet 150 mg PO DAILY Qty: 1 0RF Rx Instructions: administer on day 1 of therapy [id number]-[id number] [Fioricet] 50-300-40 mg capsule 1 cap PO Q6H PRN (Reason: pain) Qty: 10 0RF ibuprofen 600 mg tablet 600 mg PO Q8H PRN (Reason: pain) Qty: 10 0RF cyclobenzaprine 10 mg tablet 10 mg PO BEDTIME PRN (Reason: muscle spasm) Qty: 10 0RF Mirena 20 mcg/24 hours (7 yrs) 52 mg intrauterine device intrauterine cholecalciferol (vitamin D3) 25 mcg (1,000 unit) tablet 25 mcg PO DAILY ketoconazole 2 % shampoo topical 3XW <ANDRES Mayo - Last Filed: 08/11/22 19:22> Referrals: Leighann Busby [employer]AM[employer] SETTER APPRENTICE [Primary Care Provider] - <ANDRES Mayo - Last Filed: 08/11/22 19:22> Interventions: ED Discharge Assessment Last Done: 08/11/22 14:59 <ANDRES Mayo - Last Filed: 08/11/22 19:22> Discharge Date/Time: 08/11/22 15:00 <ANDRES Mayo - Last Filed: 08/11/22 19:22>
[2022-08-11 12:59] LABS: MANUAL DIFF FLAG NO
[2022-08-11 13:04] LABS: Appearance Urine Clear; Color Urine Yellow; Glucose Urine UA Negative (Negative); Leukocyte Esterase Urine Negative (Negative); Nitrite Urine Negative (Negative); PH 7.5 (5.0-9.0); Urine Blood Negative (Negative); Urine Ketones Negative (Negative); Urine Protein Negative (Neg-Trace)
[2022-08-11 13:06] LABS: UPreg QC Valid YES; Urine Pregnancy NEGATIVE (NEGATIVE)
[2022-08-11 13:10] LABS: Basophils Percent Auto 0.4 % (0-2); Eosinophils Percent Auto 0.6 % (0-4); Hematocrit 40.1 % (37.0-47.0); Hemoglobin 13.2 g/dl (12.0-16.0); Imm Gran Abs Auto 0.02 X10*3/uL (0.00-0.03); Imm Gran Pct Auto 0.4 % (0.0-0.4); Lymphocytes Absolute Auto 1.6 X10*3/uL (1.2-4.9); Lymphocytes Percent Auto 30.1 % (20-40); Mean Corpuscular HGB Conc 32.9 g/dl (31.0-35.0); Mean Corpuscular Hemoglobin 31.6 pg (27.0-33.0); Mean Corpuscular Volume 95.9 fL (80.0-98.0); Mean Platelet Volume 10.8 fL (9.4-12.3); Monocytes Absolute Auto 0.7 X10*3/uL (0.1-1.2); Monocytes Percent Auto 12.4 % (2-11); Neutrophils Absolute Auto 3.1 x10*3/uL (2.0-8.3); Neutrophils Percent Auto 56.1 % (45-73); Platelet Count 242 X10*3/uL (160-400); Red Blood Count 4.18 X10*6/uL (4.20-5.50); Red Cell Distribution Width 12.2 % (11.0-16.0); White Blood Count 5.4 X10*3/uL (4.8-10.8)
[2022-08-11 13:12] LABS: Anion Gap 13 (12-20); Blood Urea Nitrogen 8 mg/dL (9-16); Carbon Dioxide 24 mmol/L (22-29); Chloride 107 mmol/L (96-108); Creatinine Clr Calc Pharmacy 105.4; Estimated Glomerular Filt Rate > 60; Glucose Random 85 mg/dL (60-115); Potassium 4.2 mmol/L (3.3-5.1); Sodium 140 mmol/L (135-145)
--- NOTE | 2022-08-11 13:51 | PC.NURSE ---
US to bedside
[2022-08-11] MEDS: cefTRIAXone sodium 500 MG, Lidocaine HCl 1 % MPF 1 ML IM (14:52)
[2022-08-11 14:53] LABS: CT PCR NOT DETECTED (Not Detect.); NG PCR NOT DETECTED (Not Detect.)
[2022-08-12 09:43] LABS: BV Int Neg Control Negative (Negative); BV Int Pos Control Positive (Positive)
== END 2022-08-11 15:00 | disposition home or self-care (01) ==
PROVIDERS: Nurse Practitioner Family; Physician Assistant; Emergency Provider Emergency Medicine; PCP Nurse Practitioner Primary Care
DX: N73.0 Acute parametritis and pelvic cellulitis (principal); R10.30 Lower abdominal pain, unspecified
CPT/HCPCS: 0353U; 36415; 76830; 76856; 80048; 81003; 81025; 85025; 87480; 87510; 87660; 96372; 99284; J0696

== ENCOUNTER 2022-11-04 13:38 | Outpatient (REF) | payer MEDICAID, SELFPAY ==
[2022-11-05 05:58] LABS: CT PCR NOT DETECTED (Not Detect.); NG PCR NOT DETECTED (Not Detect.)
[2022-11-05 13:02] LABS: BV Int Neg Control Negative (Negative); BV Int Pos Control Positive (Positive)
[2022-11-06 22:23] LABS: HPV mRNA E6/E7 rflx Not Detected (Not Detected)
== END 2022-11-04 13:39 | disposition home or self-care (01) ==
LOC: HO.LNP 13:38
PROVIDERS: PCP Nurse Practitioner Primary Care; Visit Provider Advanced Practice Midwife
DX: Z01.419 Encounter for gynecological examination (general) (routine) without abnormal findings (principal); Z20.2 Contact with and (suspected) exposure to infections with a predominantly sexual mode of transmission; Z97.5 Presence of (intrauterine) contraceptive device
CPT/HCPCS: 0353U; 87480; 87510; 87624; 87660; 88142

== ENCOUNTER 2023-08-08 08:05 | Emergency (ER) | payer MEDICAID, SELFPAY ==
[2023-08-08 08:08] VITALS: BP 116/69; PULSE 82; RESP 18; TEMP 36.7; O2SAT 99; BMI 30.5
[2023-08-08 08:46] LABS: COVID-19 Test Negative (Negative); IDNOW Serial# 08D9AD1C
[2023-08-08 08:48] LABS: IDNOW Serial# 152EDE1D; Influenza A Negative (Negative); Influenza B2 Negative (Negative)
--- NOTE | 2023-08-08 09:43 | ED_ITS ---
HPI - URI/Sore Throat General Chief Complaint: Upper Respiratory Symptoms Stated Complaint: cold like symptoms Time Seen by Provider: 08/08/23 09:12 Source: patient Mode of arrival: ambulatory Limitations: no limitations History of Present Illness HPI Narrative: 32-year-old female with no known medical problems presents the ER with 3 days of nausea, runny nose, cough, headache, eye drainage. 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 She denies any chest pain, shortness of breath, vomiting, diarrhea, abdominal pain, fevers, chills, neck pain or neck stiffness. Related Data Home Medications Medication Instructions Recorded Confirmed levonorgestrel 21 mcg/24 hours (8 intrauterine 07/10/21 07/10/21 yrs) 52 mg intrauterine device (Mirena) cholecalciferol (vitamin D3) 25 25 mcg PO DAILY 01/07/22 mcg (1,000 unit) tablet ketoconazole 2 % shampoo topical 3XW 01/07/22 Previous Rx's Medication Instructions Recorded cyclobenzaprine 10 mg tablet 10 mg PO BEDTIME PRN muscle spasm 05/09/20 #10 tabs ibuprofen 600 mg tablet 600 mg PO Q8H PRN pain #10 tabs 05/09/20 [id number]-kckllzcawxkjd-[id number] 1 cap PO Q6H PRN pain #10 caps 10/07/20 50 mg-300 mg-40 mg capsule (Fioricet) Allergies Allergy/AdvReac Type Severity Reaction Status Date / Time No Known Allergies Allergy Verified 08/08/23 08:08 [No Known Allergies*] Review of Systems Review of Systems: Yes all other systems are reviewed and are negative Constitutional: Constitutional: Reports no additional constitutional complaints, Denies body ache(s), Denies chills, Denies fever(s), Reports headache(s) and Denies weakness Eyes: Eyes: Reports no additional eye complaints, Denies change in vision and Reports eye discharge ENT: Reports system reviewed and no additional complaints, except as documented, Denies dizziness, Reports headache(s), Reports nasal congestion, Denies nasal discharge, Denies neck pain and Denies sore throat Cardiovascular: Cardiovascular: Reports no additional cardiovascular complaints, Denies chest pain, Denies leg edema and Denies dyspnea Respiratory: Respiratory: Reports no additional respiratory complaints, Reports cough and Denies dyspnea Gastrointestinal: Gastrointestinal: Reports no additional gastrointestinal complaints, Denies abdominal pain, Denies diarrhea, Reports nausea and Denies vomiting Genitourinary: Genitourinary: Reports no additional female genitourinary complaints and Denies urinary incontinence Musculoskeletal: Musculoskeletal: Reports no additional musculoskeletal complaints, Denies back pain, Denies arthralgias, Denies joint swelling, Denies neck pain, Denies numbness and Denies tingling Integumentary/Breasts: Skin/Breast: Reports system reviewed and no additional complaints, except as docu and Denies rash Neurologic: Reports system reviewed and no additional complaints, except as documented, Denies Abnormal speech present, Denies dizziness, Reports headache(s), Denies numbness, Denies tingling and Denies weakness PMFSH Past Medical History Attestation statement: The following information was validated with the patient. Source: old records reviewed and nursing notes reviewed Onset Date is defined in the Problem List Problems that require an onset date and time if occurred within 24 hrs of arrival to the ED Aortic Dissection and Rupture; Neurologic impairment; Cardiopulmonary Arrest; Endotracheal Intubation; Insertion or Replacement of Mechanical Circulatory Assist Device Medical History Anemia Surgical History Hx of cosmetic plastic surgery History of section, low transverse H/O bladder repair surgery Family History Family History Maternal Grandmother Ovarian cancer Mother Ovarian cancer Social History Social History Alcohol intake: unknown Patient Tobacco Use Status: Never used Tobacco Advance Directives: No Advance Directives Information Provided: No Gender identity: Female Physical Exam Vital Signs: Vital Signs: Last Vital Signs Temp 98.0 F 08/08/23 08:08 Pulse 82 08/08/23 08:08 Resp 18 08/08/23 08:08 BP 116/69 08/08/23 08:08 Pulse Ox 99 08/08/23 08:08 O2 Del Method Room Air 08/08/23 08:08 BMI result Body Mass Index 30.5 Const: General: cooperative, healthy appearing, comfortable and no acute distress Orientation/consciousness: patient oriented x3 Limitations: no limitations HEENT: Head: Yes normal to inspection Ears: hearing grossly normal bilaterally and TM's normal bilaterally General nose exam: Normal external nose present Face and sinus: Yes normal facial exam Mouth: Normal oral and palatal mucosa present Throat: Yes posterior oropharynx normal, Yes tonsils normal and Yes uvula midline Eyes: General: appearance normal, both eyes and all related structures Pupils: Equal, round and reactive pupils present Neck: Neck: Yes normal visual inspection, Yes full ROM, Yes no lymphadenopathy and Yes no meningeal signs Chest: Chest palpation & inspection: normal inspection of the chest Resp: Effort & Inspection: normal respiratory effort Auscultation: clear to auscultation bilaterally Cardio: Rate: regular rate Rhythm: regular rhythm Peripheral pulses: Peripheral pulses 2+ throughout GI: Inspection: Yes normal to inspection Palpation (GI): Soft to palpation and nontender Auscultation: normal bowel sounds Back/Spine/Pelvis: Thoracic/Lumbar Spine: thoracic and lumbar spine normal to inspection Skin: General skin exam: no rashes or lesions noted Neuro: General: patient oriented x3, no meningeal signs, no focal motor deficits and normal sensation to monofilament Cranial nerves: Yes Equal, round and reactive pupils present Cognition (Neuro): normal cognition Speech: No Abnormal speech present Gait exam (Neuro): Normal gait present Motor exam (neuro): 5/5 motor strength present throughout Extrem: General: Yes normal to inspection Course Course Course Narrative: COVID and flu testing are negative. Likely viral syndrome. Recommend supportive penitentiary. Reviewed worrisome signs and symptoms of when to return to the emergency room. Comfortable plan for discharge home. Medical Decision Making Medical Decision Making [facility] Narrative: 32-year-old female with no known medical problems presents the ER with 3 days of nausea, runny nose, cough, headache, eye drainage. 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 She denies any chest pain, shortness of breath, vomiting, diarrhea, abdominal pain, fevers, chills, neck pain or neck stiffness. Exam is benign. VSS, LS CTA. Will send viral testing Differential Diagnosis Differential Diagnoses: The differential diagnosis associated with the pr esentation includes Viral syndrome, influenza Admission/Observation Consideration of admission/observation: Escalation of care including admission/observation considered viral testing negative. No hypoxia or tachypnea requiring supplemental oxygen and or admission Lab Data MDM Lab Attestation statement: I reviewed the patient's lab results. Labs: Lab Results 08/08/23 Range/Units 08:19 COVID-19 (NAVI) Negative (Negative) COVID-19 Clin Com See Note Influenza Type A (SEAN) Negative (Negative) Influenza Type B (SEAN) Negative (Negative) Influenza A & B Note See Note Tests considered The following testing was considered but not selected: no hypoxia or tachypnea requiring chest x-ray Prescription Management I considered prescription management with: Antiviral and Antibiotic Discharge Plan Discharge Clinical Impression: Viral infection Patient Disposition: Home, Self-Care Instructions: Viral Syndrome (ED) Additional Instructions: Testing for flu/covid are negative Continue Motrin or Tylenol as needed Increase fluids, rest See your PCP for any continued symptoms Prescriptions: No Action iidvmihysy-mtvzionfdoepy-xalu [Fioricet] 50-300-40 mg capsule 1 cap PO Q6H PRN (Reason: pain) Qty: 10 0RF ibuprofen 600 mg tablet 600 mg PO Q8H PRN (Reason: pain) Qty: 10 0RF cyclobenzaprine 10 mg tablet 10 mg PO BEDTIME PRN (Reason: muscle spasm) Qty: 10 0RF Mirena 20 mcg/24 hours (7 yrs) 52 mg intrauterine device intrauterine cholecalciferol (vitamin D3) 25 mcg (1,000 unit) tablet 25 mcg PO DAILY ketoconazole 2 % shampoo topical 3XW Referrals: Leighann Busby, BENDING PRESS OPERATOR [Primary Care Provider] - 5 days Stand Alone Forms: Work/School Release
[2023-08-08 09:58] VITALS: BP 115/62; PULSE 80; RESP 16; TEMP 36.6; O2SAT 98
== END 2023-08-08 10:05 | disposition home or self-care (01) ==
PROVIDERS: Emergency Provider Emergency Medicine; PCP Nurse Practitioner Primary Care
DX: B34.9 Viral infection, unspecified (principal); R05.9 Cough, unspecified; Z11.52 Encounter for screening for COVID-19
CPT/HCPCS: 87502; 87635; 99283; 99284

== ENCOUNTER 2023-09-02 02:57 | Emergency (ER) | payer MEDICAID, SELFPAY ==
--- NOTE | ~2023-09-02 | CT_ITS ---
EXAMINATION: CT ABDOMEN AND PELVIS WITHOUT CONTRAST CLINICAL INFORMATION: Right flank pain. COMPARISON: None available. TECHNIQUE: Multidetector volumetric imaging was performed from the superior aspect of the liver through the pubic symphysis. Sagittal and coronal reformatted images were obtained on the technologist's workstation. This CT examination was performed using dose optimization techniques as appropriate, variously including the following: *Automated exposure control *Adjustment of mA and/or kV according to patient size (this includes techniques or standardized protocols for targeted exams where dose is matched to indication/reason for exam; i.e. extremities or head) *Use of iterative reconstruction technique DLP: 617 mGy-cm FINDINGS: LUNG BASES: The visualized lung bases are unremarkable. LIVER, GALLBLADDER, AND BILIARY TREE: The liver is normal in size, shape, and attenuation. No focal hepatic lesion or biliary ductal dilatation is present. The gallbladder is unremarkable with no evidence of radiopaque gallstones, gallbladder wall thickening, or obvious pericholecystic inflammatory changes. PANCREAS: Unremarkable. SPLEEN: Unremarkable. ADRENAL GLANDS: Unremarkable. KIDNEYS AND URETERS: The kidneys are normal in size, shape, and attenuation. No hydronephrosis, hydroureter, or calculi seen. No perinephric stranding. BLADDER: Unremarkable. GASTROINTESTINAL TRACT: There is retained stool. The appendix is not seen. ABDOMINAL WALL: No significant hernia is appreciated. LYMPH NODES: Normal. VASCULAR: Unremarkable. PELVIC VISCERA: Unremarkable. OSSEOUS STRUCTURES: Unremarkable. CT/CT abdomen pelvis wo IV con IMPRESSION: 1. No evidence of nephrolithiasis or hydronephrosis. 2. Retained stool throughout the colon. 3. The appendix is not seen. Fleischner guidelines were followed.
[2023-09-02 02:58] VITALS: BP 114/69; PULSE 80; RESP 18; TEMP 36.1; O2SAT 99; BMI 31.4
[2023-09-02 03:46] LABS: Basophils Percent Auto 0.2 % (0-2); Eosinophils Absolute Auto 0.1 X10*3/uL (0.0-0.4); Eosinophils Percent Auto 0.5 % (0-4); Hematocrit 38.4 % (37.0-47.0); Hemoglobin 12.8 g/dl (12.0-16.0); Imm Gran Abs Auto 0.02 X10*3/uL (0.00-0.03); Imm Gran Pct Auto 0.2 % (0.0-0.4); Lymphocytes Absolute Auto 2.1 X10*3/uL (1.2-4.9); Lymphocytes Percent Auto 19.8 % (20-40); MANUAL DIFF FLAG NO; Mean Corpuscular HGB Conc 33.3 g/dl (31.0-35.0); Mean Corpuscular Hemoglobin 31.5 pg (27.0-33.0); Mean Corpuscular Volume 94.6 fL (80.0-98.0); Mean Platelet Volume 10.6 fL (9.4-12.3); Monocytes Absolute Auto 1.1 X10*3/uL (0.1-1.2); Monocytes Percent Auto 10.8 % (2-11); Neutrophils Absolute Auto 7.2 x10*3/uL (2.0-8.3); Neutrophils Percent Auto 68.5 % (45-73); Platelet Count 249 X10*3/uL (160-400); Red Blood Count 4.06 X10*6/uL (4.20-5.50); Red Cell Distribution Width 11.8 % (11.0-16.0); White Blood Count 10.5 X10*3/uL (4.8-10.8)
[2023-09-02 03:48] LABS: Appearance Urine Cloudy; Color Urine Dark Yellow; Glucose Urine UA Negative (Negative); Leukocyte Esterase Urine Moderate (2+) (Negative); Nitrite Urine Negative (Negative); PH 8.5 (5.0-9.0); Specific Gravity - Urine 1.015 (1.005-1.025); UMIC TRIGGER UACC YES; Urine Blood Moderate (2+) (Negative); Urine Ketones Negative (Negative); Urine Protein 100 (2+) mg/dL (Neg-Trace)
[2023-09-02 03:50] LABS: UPreg QC Valid YES; Urine Pregnancy NEGATIVE (NEGATIVE)
[2023-09-02 03:53] LABS: Bacteria Urine 2+ (None Seen); RBC Urine >20 /HPF (0-2); Squamous Epithelial Cell Urine 0-2 /HPF (0-2); UACC Culture Trigger YES; WBC Urine >50 /HPF (0-5)
[2023-09-02 04:03] LABS: Alanine Aminotransferase 34 U/L (0-31); Albumin Level 4.2 g/dL (3.5-5.0); Alkaline Phosphatase 56 U/L (39-117); Anion Gap 12 (12-20); Aspartate Amino Transferase 17 U/L (5-31); Bilirubin Direct 0.2 mg/dL (0.0-0.5); Bilirubin Total 0.4 mg/dL (0.0-1.0); Blood Urea Nitrogen 7 mg/dL (9-16); Calcium 9.2 mg/dL (8.4-10.2); Carbon Dioxide 25 mmol/L (22-29); Chloride 106 mmol/L (96-108); Creatinine Clr Calc Pharmacy 122.1; Estimated Glomerular Filt Rate > 60; Glucose Random 96 mg/dL (60-115); Lipase 19 U/L (8-78); Potassium 3.6 mmol/L (3.3-5.1); Sodium 139 mmol/L (135-145); Total Protein 7.5 g/dL (6.5-8.0)
[2023-09-02 05:37] VITALS: BP 120/75; PULSE 84; RESP 18; O2SAT 97
--- NOTE | 2023-09-02 05:50 | ED_ITS ---
HPI - Female Genitourinary General Chief complaint: Urogenital-Female Stated complaint: back pain Time Seen by Provider: 09/02/23 05:50 History of Present Illness HPI Narrative: The patient is a 32-year-old woman who says that for the last 3 or 4 days she has had some urinary discomfort that she thought might be a UTI. She was in [place] when her symptoms began. She was in [place] to get a dental procedure. She said that taking wjsg-[id number]-bwbmliu phenazopyridine. Yesterday she flew back to this area and during the day yesterday developed right flank pain that has been very severe. She flew back home to this area and the pain seemed to get worse and ultimately she came to the emergency room. No fevers. Related Data Home Medications Medication Instructions Recorded Confirmed levonorgestrel 21 mcg/24 hours (8 intrauterine 07/10/21 07/10/21 yrs) 52 mg intrauterine device (Mirena) cholecalciferol (vitamin D3) 25 25 mcg PO DAILY 01/07/22 mcg (1,000 unit) tablet ketoconazole 2 % shampoo topical 3XW 01/07/22 Previous Rx's Medication Instructions Recorded cyclobenzaprine 10 mg tablet 10 mg PO BEDTIME PRN muscle spasm 05/09/20 #10 tabs ibuprofen 600 mg tablet 600 mg PO Q8H PRN pain #10 tabs 05/09/20 sfmjksdnny-pogtfcknzqclb-imdpmfww 1 cap PO Q6H PRN pain #10 caps 10/07/20 50 mg-300 mg-40 mg capsule (Fioricet) cefpodoxime 200 mg tablet 200 mg PO BID #14 tabs 09/02/23 ibuprofen 600 mg tablet 600 mg PO Q6H PRN pain #14 tabs 09/02/23 Allergies Allergy/AdvReac Type Severity Reaction Status Date / Time No Known Allergies Allergy Verified 08/08/23 08:08 [No Known Allergies*] Review of Systems 2 Review of Systems: Yes all other systems are reviewed and are negative PMFSH Past Medical History Medical History Anemia Surgical History Hx of cosmetic plastic surgery History of section, low transverse H/O bladder repair surgery Family History Family History Maternal Grandmother Ovarian cancer Mother Ovarian cancer Social History Social History Alcohol intake: unknown Patient Tobacco Use Status: Never used Tobacco Smoked in Last 30 Days: No Use of substances other than those prescribed or required for medical reasons: No Advance Directives: No Advance Directives Information Provided: No Patient : No Gender identity: Female Physical Exam 2 Vital Signs: Vital Signs: Last Vital Signs Temp 96.9 F 09/02/23 02:58 Pulse 84 09/02/23 05:37 Resp 18 09/02/23 05:37 BP 120/75 09/02/23 05:37 Pulse Ox 97 09/02/23 05:37 O2 Del Method Room Air 09/02/23 05:37 BMI result Body Mass Index 31.4 Const: Other: The patient is awake and alert. She looks uncomfortable. HEENT: Other: The face is symmetrical. ?Mucous membranes moist. Eyes: Other: Pupils are round equal, conjunctivae are clear, extraocular movements intact Neck: Other: Moving her neck easily Resp: Effort & Inspection: normal respiratory effort Auscultation: clear to auscultation bilaterally Cardio: Rate: regular rate Rhythm: regular rhythm Heart sounds: S1 normal heart sound present and S2 normal heart sound present GI: Other: The abdomen is soft she does not seem to have abdominal tenderness. No rebound or guarding. Back/Spine/Pelvis: Other: The patient has right-sided CVA percussion tenderness. Skin: Other: Skin is warm and dry Neuro: Other: The patient is awake and alert. She seems uncomfortable but has a normal mental status. Cranial nerves are grossly intact. She moves her extremities normally. Extrem: Other: No peripheral edema Medications Administered Discontinued Medications Generic Name Dose Route Start Last Admin Trade Name Freq PRN Reason Stop Dose Admin Droperidol 1.25 mg 09/02/23 05:51 09/02/23 06:00 Droperidol 5 Mg/2 Ml Vial IVPUSH 09/02/23 05:52 1.25 mg ONCE ONE Administration Sodium Chloride 1,000 mls @ 999 mls/hr 09/02/23 06:00 09/02/23 07:58 Ns IV 09/02/23 07:00 Infused .Q1H1M ALENA Infusion Sodium Chloride 1,000 mls @ 999 mls/hr 09/02/23 07:00 09/02/23 08:33 Ns IV 09/02/23 08:00 Not Given .Q1H1M ALENA Ceftriaxone Sodium 1 gm/ 50 mls @ 100 mls/hr 09/02/23 06:57 09/02/23 07:58 Sodium Chloride IV 09/02/23 07:26 Infused ONCE ONE Infusion Ketorolac Tromethamine 15 mg 09/02/23 05:51 09/02/23 06:00 Ketorolac Tromethamine 15 Mg/Ml Vial IVPUSH 09/02/23 05:52 15 mg ONCE ONE Administration Medical Decision Making Medical Decision Making [facility] Narrative: The patient presents with right-sided flank pain after 3 or 4 days of urinary symptoms. She looks quite uncomfortable and has right-sided CVA percussion tenderness. Her history is suggestive of pyelonephritis although a kidney stone would have to be considered as well. Her urinalysis is consistent with urinary tract infection with leukocyte esterase and more than 50 white cells. She also has significant microscopic hematuria. My clinical suspicion for right-sided pyelonephritis or possibly ureteral stone with hydronephrosis was quite high. I was surprised that the patient's CT scan did not show either perinephric stranding, kidney stone, or hydronephrosis. The appendix is not seen but the patient's presentation isn't really suggestive of appendicitis in the patient's physical exam is not really suggestive of appendicitis either. The patient's white count is normal with no left shift. CRP is only minimally elevated. I still think the clinical picture and the findings on the urinalysis suggest right-sided pyelonephritis more than anything else. She was treated for her pain and given a dose of IV ceftriaxone. She will be discharged on cefpodoxime. She should return if she is worse. Lab Data 09/02/23 03:41 09/02/23 03:41 Labs: Lab Results 09/02/23 09/02/23 Range/Units 03:35 03:41 WBC 10.5 (4.8-10.8) X10*3/uL RBC 4.06 L (4.20-5.50) X10*6/uL Hgb 12.8 (12.0-16.0) g/dl Hct 38.4 (37.0-47.0) % MCV 94.6 (80.0-98.0) fL MCH 31.5 (27.0-33.0) pg MCHC 33.3 (31.0-35.0) g/dl RDW 11.8 (11.0-16.0) % Plt Count 249 (160-400) X10*3/uL MPV 10.6 (9.4-12.3) fL Immature Gran % (Auto) 0.2 (0.0-0.4) % Neut % (Auto) 68.5 (45-73) % Lymph % (Auto) 19.8 L (20-40) % [place] % (Auto) 10.8 (2-11) % Eos % (Auto) 0.5 (0-4) % Baso % (Auto) 0.2 (0-2) % Lymph # (Auto) 2.1 (1.2-4.9) X10*3/uL [place] # (Auto) 1.1 (0.1-1.2) X10*3/uL Eos # (Auto) 0.1 (0.0-0.4) X10*3/uL Baso # (Auto) 0.0 (0.0-0.2) X10*3/uL Abs Immat Gran (auto) 0.02 (0.00-0.03) X10*3/uL Absolute Neuts (auto) 7.2 (2.0-8.3) x10*3/uL Absolute Nucleated RBC 0.000 (0.0-0.012) X10*3/uL Nucleated RBC % (auto) 0.0 (0.0-0.2) /100WBC Sodium 139 (135-145) mmol/L Potassium 3.6 (3.3-5.1) mmol/L Chloride 106 (96-108) mmol/L Carbon Dioxide 25 (22-29) mmol/L Anion Gap 12 (12-20) BUN 7 L (9-16) mg/dL Creatinine 0.67 (0.5-1.4) mg/dL Estim Creat Clear Calc 122.1 Estimated GFR > 60 Random Glucose 96 (60-115) mg/dL Calcium 9.2 (8.4-10.2) mg/dL Total Bilirubin 0.4 (0.0-1.0) mg/dL Direct Bilirubin 0.2 (0.0-0.5) mg/dL AST 17 (5-31) U/L ALT 34 H (0-31) U/L Alkaline Phosphatase 56 (39-117) U/L C-Reactive Protein 0.56 H (< or = 0.50) mg/dL Total Protein 7.5 (6.5-8.0) g/dL Albumin 4.2 (3.5-5.0) g/dL Lipase 19 (8-78) U/L Urine Color Dark Yellow Urine Appearance Cloudy Urine pH 8.5 (5.0-9.0) Ur Specific [place] 1.015 (1.005-1.025) Urine Protein 100 (2+) H (Neg-Trace) mg/dL Urine Glucose (UA) Negative (Negative) mg/dL Urine Ketones Negative (Negative) mg/dL Urine Blood Moderate (2+) H (Negative) Urine Nitrite Negative (Negative) Ur Leukocyte Esterase Moderate (2+) H (Negative) Urine RBC >20 H (0-2) /HPF Urine WBC >50 H (0-5) /HPF Ur Squamous Epith Cells 0-2 (0-2) /HPF Urine Bacteria 2+ (None Seen) Hyaline Casts 3-5 (0-2) /LPF Urine Test NEGATIVE (NEGATIVE) Discharge Plan Discharge Clinical Impression: Pyelonephritis of right kidney Patient Disposition: Home, Self-Care Instructions: Kidney Infection (ED) Additional Instructions: I suspect that you have a urinary tract infection that has caused some inflammation of your right kidney which is why you are having such pain in your right flank. You have been started on antibiotics. You received a dose of IV ceftriaxone this morning. Please take your 1st dose of oral antibiotic this evening. I have sent a prescription for an antibiotic called cefpodoxime to your pharmacy that you will be taking 2 times a day (approximately every 12 hours). Again please take this antibiotic with the 1st dose this evening. Drink lot of fluids. Use ibuprofen as needed for pain every 6 hours. You may also use 2 extra-strength acetaminophen up to 3 times a day as needed for pain. Please contact your regular doctor's office today for a follow up appointment in the next 2 days. Return to the emergency room if significantly worse. Prescriptions: New cefpodoxime 200 mg tablet 200 mg PO BID Qty: 14 0RF Rx Instructions: must administer with a meal/food ibuprofen 600 mg tablet 600 mg PO Q6H PRN (Reason: pain) Qty: 14 0RF No Action qmaepcjwki-ssgznquekwelz-aylj [Fioricet] 50-300-40 mg capsule 1 cap PO Q6H PRN (Reason: pain) Qty: 10 0RF ibuprofen 600 mg tablet 600 mg PO Q8H PRN (Reason: pain) Qty: 10 0RF cyclobenzaprine 10 mg tablet 10 mg PO BEDTIME PRN (Reason: muscle spasm) Qty: 10 0RF Mirena 20 mcg/24 hours (7 yrs) 52 mg intrauterine device intrauterine cholecalciferol (vitamin D3) 25 mcg (1,000 unit) tablet 25 mcg PO DAILY ketoconazole 2 % shampoo topical 3XW Referrals: Leighann Busby PETROLEUM INSPECTOR SUPERVISOR [Primary Care Provider] - (Presumed pyelonephritis) Stand Alone Forms: Work/School Release Interventions: ED Discharge Assessment Last Done: 09/02/23 08:42 Discharge Date/Time: 09/02/23 08:43
[2023-09-02] MEDS: Ketorolac Tromethamine 15 MG/ML VIAL IVPUSH (06:00)
[2023-09-02] MEDS: 0.9 % Sodium Chloride 1,000 ML 999 ML IV (06:00)
[2023-09-02] MEDS: droPERidol 5 MG/2 ML VIAL 1.25 MG IVPUSH (06:00)
[2023-09-02] MEDS: cefTRIAXone sodium 1 GM in 0.9 % Sodium Chloride 50 ML IV (07:22)
[2023-09-02 08:12] LABS: C Reactive Protein 0.56 mg/dL (< or = 0.50)
--- NOTE | 2023-09-02 08:33 | PC.NURSE ---
assumed care of pt at 0700. pt a&o x4, pleasant, calm, and cooperative. pt reporting 3/10 pain back. pain medication with effectiveness. fluids infused and pt medicated per sep. pt asked if they want second bag of fluids, pt sts no would just like to go home and drink water.
== END 2023-09-02 08:43 | disposition home or self-care (01) ==
PROVIDERS: Emergency Provider Emergency Medicine; PCP Nurse Practitioner Primary Care
DX: N12 Tubulo-interstitial nephritis, not specified as acute or chronic (principal); B96.20 Unspecified Escherichia coli [E. coli] as the cause of diseases classified elsewhere
CPT/HCPCS: 36415; 74176; 80048; 80076; 81001; 81025; 83690; 85025; 86140; 87086; 87088; 87186; 96361; 96374; 96375; 99284; 99285; J0696; J1790; J1885

== ENCOUNTER 2023-09-21 17:52 | Outpatient (REF) | payer MEDICAID, SELFPAY | END 2023-09-21 17:53 | disposition home or self-care (01) | LOC: HO.HHCLNP 17:52 | PROVIDERS: Visit Provider Emergency Medicine | DX: R05.9 Cough, unspecified (principal) | CPT/HCPCS: 87086; 87088; 87186 ==

== ENCOUNTER 2024-01-18 10:20 | Outpatient (AMB) | payer MEDICAID, SELFPAY ==
[2024-01-18 10:43] VITALS: BP 116/62; BMI 30.6
--- NOTE | 2024-01-18 10:43 | A.OFFVIS_ITS ---
Vital Signs 01/18/24 10:43 Height 5 ft 3 in Weight 173 lb BMI 30.6 BP 116/62 Intake Visit Reasons: ?bv Web Content & Social Media Manager Required: No Web Content & Social Media Manager Services: Web Content & Social Media Manager Present Information Interpreted: clinical only B2B Sales Executive: B2B Sales Executive Present Allergies No Known Allergies [No Known Allergies*] Allergy (Verified 01/18/24 10:44) Medication List - Last Reconciled 01/18/24 by Ena Jimenez CNM qhpjuhdcpj-essxtvqsbxxct-clhe 50-300-40 mg (Fioricet) 1 cap PO Q6H PRN cefpodoxime 200 mg PO BID cholecalciferol (vitamin D3) 25 mcg PO DAILY cyclobenzaprine 10 mg PO BEDTIME PRN ibuprofen 600 mg PO Q8H PRN ibuprofen 600 mg PO Q6H PRN ketoconazole 2% topical 3XW levonorgestrel (Mirena) intrauterine Is last menstrual period known: Yes (IUD) Last menstrual period: 12/14/23 HPI HPI ?bv: Details: Patient is here because she thinks she has BV. She had seen this provider somewhat recently and had discuss getting her Mirena replaced but then she was having a white discharge in she decided to treat herself for yeast she used Monistat as late as 2 days ago. She has not having any vaginal itching just the white discharge she said she discuss this with her primary care provider who suggested that maybe her pH was getting thrown off when she had sex she has not had sex in about a month because she is trying to just see how she does without that. She does not want to get she has the Mirena since her son was about a month old per (this provider reportedly inserted it and does not insert IUDs until at least 2 months ) so in April it would be 6 years since insertion as her son was born in February 6 years ago. At the end of the visit after the exam which revealed normal scant discharge and healthy looking cervix with Mirena string, patient raised the subject of having tendinous in her entire lower pelvic area for the last 5 or 6 months. MA called back into the room for bimanual pelvic exam patient nontender with cervical motion adnexal palpation or uterine palpation patient complaining of some discomfort more in bladder area patient had had mesh surgery for bladder support 2 years ago at [facility]. I suggest the patient speak with either her primary care provider or her urogynecologist and get screened for UTI 1st what follow-up with them. Meanwhile she can schedule Mirena insertion when she desires we will let her know if the positive findings on the tests today. And she will be treated according. [facility] Medical History Anemia Surgical History Hx of cosmetic plastic surgery History of section, low transverse H/O bladder repair surgery Family History Maternal Grandmother Ovarian cancer Mother Ovarian cancer Social History Alcohol intake: unknown Patient Tobacco Use Status: Never used Tobacco Gender identity: Female Female Reproductive History Menstrual Age of Menarche: 15 Duration of menses: <3 days Date of last menstrual period: 12/14/23 control method: progestin IUCD Total pregnancies: 2 Full term: 2 Date of last pap smear: 11/05/22 (negative) History of abnormal pap smear: Yes (unsure date) Physical Exam Vital Signs: Last Vital Signs BP 116/62 01/18/24 10:43 BMI result Body Mass Index 30.6 External Female Exam: normal external appearance Speculum Exam - Vagina: normal appearance of the vagina and normal vaginal discharge Speculum Exam - Cervix: normal appearance of the cervix Bimanual exam- vagina & uterus: normal bimanual exam, uterine size normal, consistency normal, uterine mobility normal, uterine shape normal and non-tender Bimanual Exam- Adnexa, other: normal adnexae, no masses and No adnexal tenderness Assessment & Plan Assessment & Plan (1) control counseling: Code(s): Z30.09 - Encounter for other general counseling and advice on contraception Category: Medical (2) Screen for sexually transmitted diseases: Code(s): Z11.3 - Encounter for screening for infections with a predominantly sexual mode of transmission Category: Medical (3) H/O bladder repair surgery: Code(s): Z98.890 - Other specified postprocedural states Category: Surgical (4) Problematic vaginal discharge: Code(s): N89.8 - Other specified noninflammatory disorders of vagina Category: Medical Plan Patient is here because she thinks she has BV. She had seen this provider somewhat recently and had discuss getting her Mirena replaced but then she was having a white discharge in she decided to treat herself for yeast she used Monistat as late as 2 days ago. She has not having any vaginal itching just the white discharge she said she discuss this with her primary care provider who suggested that maybe her pH was getting thrown off when she had sex she has not had sex in about a month because she is trying to just see how she does without that. She does not want to get she has the Mirena since her son was about a month old per (this provider reportedly inserted it and does not insert IUDs until at least 2 months ) so in April it would be 6 years since insertion as her son was born in February 6 years ago. At the end of the visit after the exam which revealed normal scant discharge and healthy looking cervix with Mirena string, patient raised the subject of having tendinous in her entire lower pelvic area for the last 5 or 6 months. MA called back into the room for bimanual pelvic exam patient nontender with cervical motion adnexal palpation or uterine palpation patient complaining of some discomfort more in bladder area patient had had mesh surgery for bladder support 2 years ago at [facility]. I suggest the patient speak with either her primary care provider or her urogynecologist and get screened for UTI 1st what follow-up with them. Meanwhile she can schedule Mirena insertion when she desires we will let her know if the positive findings on the tests today. And she will be treated according. Orders: Orders CT NG by PCR Today N89.8 - Other specified noninflammatory disorders of vagina, R10.2 - Pelvic and perineal pain Bacterial Vaginosis Panel Today N89.8 - Other specified noninflammatory disorders of vagina, R10.2 - Pelvic and perineal pain Coding Level of Care Code Est Pt Level 3 (97826) Diagnoses control counseling Z30.09 Screen for sexually transmitted diseases Z11.3 H/O bladder repair surgery Z98.890 Problematic vaginal discharge N89.8
== END 2024-01-18 11:27 | disposition home or self-care (01) ==
LOC: HO.HWSM 10:20
PROVIDERS: PCP Nurse Practitioner Primary Care; Visit Provider Advanced Practice Midwife
DX: Z30.09 Encounter for other general counseling and advice on contraception (principal); Z11.3 Encounter for screening for infections with a predominantly sexual mode of transmission; Z98.890 Other specified postprocedural states; N89.8 Other specified noninflammatory disorders of vagina
CPT/HCPCS: 99213

== ENCOUNTER 2024-01-18 10:20 | Outpatient (REF) | payer MEDICAID, SELFPAY | END 2024-01-18 10:21 | disposition home or self-care (01) | LOC: HO.LAB 10:20 | PROVIDERS: PCP Nurse Practitioner Primary Care; Visit Provider Advanced Practice Midwife | DX: N89.8 Other specified noninflammatory disorders of vagina (principal); R10.2 Pelvic and perineal pain; Z97.5 Presence of (intrauterine) contraceptive device; Z98.890 Other specified postprocedural states; Z30.09 Encounter for other general counseling and advice on contraception | CPT/HCPCS: 99212 ==

== ENCOUNTER 2024-01-19 11:52 | Outpatient (REF) | payer MEDICAID, SELFPAY ==
[2024-01-19 13:46] LABS: Bacterial Vaginosis PCR NEGATIVE (Negative); Candida Group PCR NOT DETECTED (Not Detect); Candida glab krusei PCR NOT DETECTED (Not Detect); Trichomonas vaginalis PCR NOT DETECTED (Not Detect)
[2024-01-19 14:01] LABS: CT PCR NOT DETECTED (Not Detect.); NG PCR NOT DETECTED (Not Detect.)
== END 2024-01-19 11:53 | disposition home or self-care (01) ==
LOC: HO.LNP 11:52
PROVIDERS: Visit Provider Advanced Practice Midwife
DX: N89.8 Other specified noninflammatory disorders of vagina (principal); R10.2 Pelvic and perineal pain
CPT/HCPCS: 0352U; 0353U

== ENCOUNTER 2024-04-18 16:57 | Emergency (ER) | payer MEDICAID, SELFPAY ==
--- NOTE | ~2024-04-18 | XR_ITS ---
EXAMINATION: XR WRIST, LEFT CLINICAL INFORMATION: Injury. Pain. COMPARISON: None available. TECHNIQUE: PA, lateral, oblique, and scaphoid views of the left wrist. FINDINGS: The bones and soft tissues are normal. No fracture. Alignment is anatomic with normal joint spaces. No erosions or abnormal soft tissue calcifications. XR/XR wrist LT min 3V IMPRESSION: Normal left wrist. Electronically signed by: Miguel Angel Hernandez MD 04/18/2024 06:55 PM EDT
--- NOTE | ~2024-04-18 | CT_ITS ---
EXAMINATION: CT CERVICAL SPINE WITHOUT CONTRAST CLINICAL INFORMATION: Right-sided neck pain. Fall. COMPARISON: None available. TECHNIQUE: Axial images obtained through the cervical spine. Coronal and sagittal reformatted images are performed with CT scan This CT examination was performed using dose optimization techniques as appropriate, variously including the following: *Automated exposure control *Adjustment of mA and/or kV according to patient size (this includes techniques or standardized protocols for targeted exams where dose is matched to indication/reason for exam; i.e. extremities or head) *Use of iterative reconstruction technique DLP: 419 mGy-cm FINDINGS: Cervical vertebra have normal height and alignment. No fracture or bone destruction. Cervical disc heights are normal. Facet joints are normal. No prevertebral soft tissue swelling. CT/CT cervical spine wo IV con IMPRESSION: Unremarkable examination. Fleischner guidelines were followed. Electronically signed by: Miguel Angel Hernandez MD 04/18/2024 07:40 PM EDT
--- NOTE | 2024-04-18 17:09 | ED.GENADULT ---
HPI - General Adult General Chief complaint: Neck Pain/Injury Stated complaint: neck ,left wrist pain fell 04/14 Time Seen by Provider: 04/18/24 18:47 Source: patient and old records reviewed Mode of arrival: ambulatory Limitations: no limitations History of Present Illness ED Provider: JOSE ANGEL PISANO narrative: 33 yo female with PMH of anemia here with c/o slip and fall Thursday morning - landing on L wrist which is her dominant hand and back of neck no LOC. 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 She has a hard time ranging the neck. She takes naprosyn without relief. No numbness or weakness of the UE. No other injuries noted. She is L hand dominant. MD complaint: L wrist and neck injury Onset (ago): day(s) (3) Location: neck, left and upper extremity Radiation: non-radiation Severity: moderate Quality: aching Pain Consistency: intermittent Relieving factors: immobilization Exacerbating factors: movement Associated symptoms: denies other symptoms Treatments prior to arrival: NSAID Related Data Home Medications ?Medication ?Instructions ?Recorded ?Confirmed levonorgestrel 21 mcg/24 hr (up to intrauterine 07/10/21 01/18/24 8 years) 52 mg intrauterine device (Mirena) cholecalciferol (vitamin D3) 25 25 mcg PO DAILY 01/07/22 01/18/24 mcg (1,000 unit) tablet ketoconazole 2 % shampoo topical 3XW 01/07/22 01/18/24 Previous Rx's ?Medication ?Instructions ?Recorded cyclobenzaprine 10 mg tablet 10 mg PO BEDTIME PRN muscle spasm 05/09/20 #10 tabs ibuprofen 600 mg tablet 600 mg PO Q8H PRN pain #10 tabs 05/09/20 [id number]-eosbvpahdyutm-inuthqjp 1 cap PO Q6H PRN pain #10 caps 10/07/20 50 mg-300 mg-40 mg capsule (Fioricet) cefpodoxime 200 mg tablet 200 mg PO BID #14 tabs 09/02/23 ibuprofen 600 mg tablet 600 mg PO Q6H PRN pain #14 tabs 09/02/23 cyclobenzaprine 10 mg tablet 10 mg PO TID PRN muscle spasm #20 04/18/24 tabs lidocaine 5 % topical patch 1 patch topical DAILY #30 ea 04/18/24 Allergies Allergy/AdvReac Type Severity Reaction Status Date / Time No Known Allergies Allergy Verified 04/18/24 17:12 [No Known Allergies*] Review of Systems Review of Systems: Constitutional : No Fever, No Chills ENT/Mouth : No Ear Pain, No Hoarseness, No sore throat Eyes: No Eye Pain, No Swelling, No Redness, No Foreign Body Cardiovascular : No Chest Pain, No SOB Respiratory : No Cough, No Dyspnea Gastrointestinal : No Nausea, No Vomiting, No Diarrhea, No abdominal Pain Genitourinary : No Dysuria, No Hematuria Musculoskeletal : positive joint pain, No Myalgias, No Joint Swelling, pos neck pain Skin : No Skin lacerations, No rash Neuro : No Weakness, No Numbness, No Loss of Consciousness, No Dizziness, No Headache All other systems reviewed and are negative [facility] Past Medical History Attestation statement: The following information was validated with the patient. Source: old records reviewed Medical History Anemia Surgical History Hx of cosmetic plastic surgery History of section, low transverse H/O bladder repair surgery Family History Family History Maternal Grandmother Ovarian cancer Mother Ovarian cancer Social History Social History Alcohol intake: unknown Patient Tobacco Use Status: Never used Tobacco Advance Directives: No Advance Directives Information Provided: No Gender identity: Female Physical Exam ED Vital Signs: Vital Signs - 24 hr 04/18/24 17:10 04/18/24 19:37 Temperature 98 F 97.5 F Pulse Rate 74 71 Respiratory Rate 17 17 Blood Pressure 120/69 145/87 H Pulse Oximetry 98 100 Oxygen Delivery Method Room Air BMI result Body Mass Index 32.0 Appearance: Alert. Oriented X3. No acute distress. Eyes: Pupils equal, round and reactive to light. ENT: Pharynx normal. Neck: C5-6 ttp no step offs, no crepitus felt, bilateral trapezius ttp CVS: Normal heart rate and rhythm. Pulses normal. Respiratory: No respiratory distress. Breath sounds normal. Abdomen: Soft and nontender. Skin: Skin warm and dry. Normal skin color. Normal skin turgor. Extremities: No lower extremity edema. L wrist ttp along dorsum but no swelling and she has normal ROM and pulses SILT intact Neuro: Oriented X 3. No motor deficit. No sensory deficit. Course Course Course Narrative: RME performed by Alysia Mckinney PA-C. Patient is a 33 year old assigned female at presenting to the emergency department with right neck pain and left wrist / hand pain. Patient states she fell a few days ago and is having right sided neck pain and left wrist pain. Detailed physical exam and review of systems are deferred to the speech and language clinician. Imaging ordered. Patient placed back in the waiting room pending room availability and results. Medical Decision Making Medical Decision Making MDM Narrative: 33 yo female with PMH of anemia here with c/o slip and fall with neck pain no headstrike or LOC she has midline ttp along C5-C6, she is NV intact in upper extremities. At this time she also c/o L wrist pain from fall will obtain xray - CT scan of cervical spine ordered, denies issues swallowing or speaking. Overall not toxic appearing. Differential Diagnosis Differential Diagnoses: The differential diagnosis associated with the presentation includes strain, sprain, fracture, whiplash Admission/Observation Consideration of admission/observation: Escalation of care including admission/observation considered negative findings neuro intact stable for DC Independent Interpretation I performed an independent interpretation of an: Plain X-Ray (normal) and CT Scan (no fracture) Radiology Impression Discussion of test interpretation with radiology: I have reviewed the radiologist's reading. External Record Review External record reviewed: Office record Discharge Plan Discharge Clinical Impression: Muscle spasms of neck Left wrist sprain Qualifiers: Encounter type: initial encounter Qualified Code(s): S63.502A - Unspecified sprain of left wrist, initial encounter Patient Disposition: Home, Self-Care Instructions: Cervical Strain (ED), Muscle Spasm (ED), Wrist Sprain (ED) Additional Instructions: normal xray and normal CT scan of spine no fracture suspect spasm of the neck at this time will start on pain patches and muscle relaxers take the next 3 days off work if not better see your doctor for physical therapy FINDINGS: Cervical vertebra have normal height and alignment. No fracture or bone destruction. Cervical disc heights are normal. Facet joints are normal. No prevertebral soft tissue swelling. CT/CT cervical spine wo IV con IMPRESSION: Unremarkable examinatio Prescriptions: New cyclobenzaprine 10 mg tablet 10 mg PO TID PRN (Reason: muscle spasm) Qty: 20 0RF lidocaine 5 % adhesive patch,medicated 1 patch topical DAILY Qty: 30 0RF Rx Instructions: leave on most painful area for up to 12 hrs No Action [id number]-ruzhtmhqdkhoc-[id number] [Fioricet] 50-300-40 mg capsule 1 cap PO Q6H PRN (Reason: pain) Qty: 10 0RF ibuprofen 600 mg tablet 600 mg PO Q8H PRN (Reason: pain) Qty: 10 0RF cyclobenzaprine 10 mg tablet 10 mg PO BEDTIME PRN (Reason: muscle spasm) Qty: 10 0RF cefpodoxime 200 mg tablet 200 mg PO BID Qty: 14 0RF Rx Instructions: must administer with a meal/food ibuprofen 600 mg tablet 600 mg PO Q6H PRN (Reason: pain) Qty: 14 0RF Mirena 20 mcg/24 hours (7 yrs) 52 mg intrauterine device intrauterine cholecalciferol (vitamin D3) 25 mcg (1,000 unit) tablet 25 mcg PO DAILY ketoconazole 2 % shampoo topical 3XW Stand Alone Forms: Work/School Release Print Language: Malay
[2024-04-18 17:10] VITALS: BP 120/69; PULSE 74; RESP 17; TEMP 36.6; O2SAT 98; BMI 32.0
[2024-04-18 19:37] VITALS: BP 145/87; PULSE 71; RESP 17; TEMP 36.4; O2SAT 100
[2024-04-18 21:01] VITALS: BP 145/87; PULSE 71; RESP 17; TEMP 36.4; O2SAT 100
== END 2024-04-18 21:03 | disposition home or self-care (01) ==
PROVIDERS: Emergency Provider Emergency Medicine; PCP Nurse Practitioner Primary Care
DX: S63.502A Unspecified sprain of left wrist, initial encounter (principal); W01.0XXA Fall on same level from slipping, tripping and stumbling without subsequent striking against object, initial encounter; Y93.9 Activity, unspecified; Y92.9 Unspecified place or not applicable; Y99.9 Unspecified external cause status; M54.2 Cervicalgia; M62.838 Other muscle spasm; Z79.899 Other long term (current) drug therapy
CPT/HCPCS: 72125; 73110; 99284

== ENCOUNTER 2024-10-19 11:41 | Outpatient (REF) | payer MEDICAID, SELFPAY ==
[2024-10-19 21:33] LABS: Bacterial Vaginosis PCR NEGATIVE (Negative); Candida Group PCR DETECTED (Not Detect); Candida glab krusei PCR NOT DETECTED (Not Detect); Trichomonas vaginalis PCR NOT DETECTED (Not Detect)
[2024-10-19 21:51] LABS: CT PCR NOT DETECTED (Not Detect.); NG PCR NOT DETECTED (Not Detect.)
[2024-10-20 04:21] LABS: Syphilis Screen Nonreactive (Nonreactive)
[2024-10-20 04:41] LABS: HBsAGNum1 0.34 S/CO (0.00-0.99); HIV AB/AG Nonreactive (Nonreactive); HIV Num 1 0.07 S/CO (0.00-0.99); Hepatitis B Surface Antigen Negative (Negative); ~HepC Num1 0.09 S/CO (0.00-0.79); ~Hepatitis C Antibody Nonreactive (Nonreactive)
== END 2024-10-19 11:42 | disposition home or self-care (01) ==
LOC: HO.LAB 11:41
PROVIDERS: PCP Nurse Practitioner Primary Care; Visit Provider Advanced Practice Midwife
DX: Z30.09 Encounter for other general counseling and advice on contraception (principal); N89.8 Other specified noninflammatory disorders of vagina; Z20.2 Contact with and (suspected) exposure to infections with a predominantly sexual mode of transmission; Z97.5 Presence of (intrauterine) contraceptive device
CPT/HCPCS: 81515; 86780; 86803; 87340; 87389; 87491; 87591; 99212

== ENCOUNTER 2024-10-19 11:41 | Outpatient (AMB) | payer MEDICAID, SELFPAY ==
[2024-10-19 11:44] VITALS: BP 118/78; BMI 30.9
--- NOTE | 2024-10-19 11:44 | MHC.OFFVIS ---
Vital Signs 10/19/24 11:44 Height 5 ft 2 in Weight 169 lb BMI 30.9 BP 118/78 Intake Visit Reasons: vaginal discharge Waxing Machine Operator Required: No Waxing Machine Operator Services: Waxing Machine Operator Present Information Interpreted: clinical only Yellow Pages Space Salesperson: Yellow Pages Space Salesperson Present Allergies No Known Allergies [No Known Allergies*] Allergy (Verified 10/19/24 11:46) Medication List - Last Reconciled 10/19/24 by Ena Jimenez CNM kjarfoqfar-nsylfmakyvpkv-aqfq 50-300-40 mg (Fioricet) 1 cap PO Q6H PRN cholecalciferol (vitamin D3) 25 mcg PO DAILY cyclobenzaprine 10 mg PO TID PRN ibuprofen 600 mg PO Q8H PRN ibuprofen 600 mg PO Q6H PRN ketoconazole 2% topical 3XW levonorgestrel (Mirena) intrauterine lidocaine 5% 1 patch topical DAILY Is last menstrual period known: Yes Last menstrual period: 10/17/24 HPI HPI vaginal discharge: Details: Patient is here for an exam she wants a full STD check. She found out Thursday that her partner of many years who is the father of her youngest child has been cheating on her with someone since April. She has dealt with that is situation. But she wants full STI testing. She says when this is all over she will want to take the Mirena out and have her body be clean with no chemicals at all She has embarked in the last year with a completely clean even pattern and has converted the diet of her children to be completely clean and chemical free and lowered the sugar and salt and artificial ingredients of everything and gets fresh vegetables and juices them and cooks everything from scratching. With the Mirena she has been getting just a little bit of spotting about twice a month so she ends up wearing a panty liner to protect her undies, I discussed with her that that maybe the cause of the itching though she is concerned that possibly she could be using Monistat twice a month and really the problem could be that her partner has given her something like trichomoniasis. [facility] Medical History (Updated 10/19/24 @ 12:34 by Ena Jimenez CNM) IUD (intrauterine device) in place Anemia Surgical History Hx of cosmetic plastic surgery History of section, low transverse H/O bladder repair surgery Family History Maternal Grandmother Ovarian cancer Mother Ovarian cancer Social History Alcohol intake: unknown Patient Tobacco Use Status: Never used Tobacco Gender identity: Female Female Reproductive History Menstrual Age of Menarche: 15 Duration of menses: 3-5 days Date of last menstrual period: 10/17/24 control method: progestin IUCD Total pregnancies: 2 Full term: 2 Physical Exam Vital Signs: Last Vital Signs BP 118/78 10/19/24 11:44 BMI result Body Mass Index 30.9 Other: Vulva labia minora little bit reddened especially close to clitoris consistent with possible mild yeast Vagina pink and moist normal-appearing discharge scant multiparous cervix with Mirena string External Female Exam: normal external appearance and normal appearance of the urethra Speculum Exam - Vagina: normal appearance of the vagina and normal vaginal discharge Speculum Exam - Cervix: normal appearance of the cervix and Cervical os closed Assessment & Plan Assessment & Plan (1) IUD (intrauterine device) in place: Comment: mirena inserted 05/20/18...10/19/24-is considering removal later this year... Code(s): Z97.5 - Presence of (intrauterine) contraceptive device Category: Medical (2) Problematic vaginal discharge: Code(s): N89.8 - Other specified noninflammatory disorders of vagina Category: Medical (3) control counseling: Code(s): Z30.09 - Encounter for other general counseling and advice on contraception Category: Medical (4) Vaginal itching: Comment: We will rule out STIs but maybe mild yeast related to wearing panty liners secondary to irregular spotting with Mirena. Code(s): N89.8 - Other specified noninflammatory disorders of vagina Category: Medical Plan This note is constructed using voice recognition software. While every effort has been made to ensure accuracy, renewable energy trader errors may have been included. Patient feel read on all of the amazing changes that have been going on in her life that she thinks has helped her with stand the trauma of finding out that her partner of so many years has been cheating on her and she feels she is rising to the occasion and handling it well because she is in a better healthy place she goes for walks it [place] every morning after she drops her kids off that is school she has been eating very very healthy and has made positive changes in her life and her family's lives her kids it had had issues with ADHD are doing so much better and they are off all meds and artificial colors and chemicals and sugar I have ordered blood work for STIs and I discussed each 1 with her and she may call for the results as she is not on the portal and she just needs to schedule an annual exam and we can discuss where she was at in terms of control need and Mirena at that time if she is able to do without the panty liners that would serve her well as I think that maybe partly the cause of the itching and I am also sending a prescription for Monistat 7 to her pharmacy for her. RTC for annual industrial property appraiser exam Timeframe/Date Comment RTC for industrial property appraiser annual whenever it is due this year Labs Orders: Orders Hepatitis B Surface Antigen Today N89.8 - Other specified noninflammatory disorders of vagina, Z30.09 - Encounter for other general counseling and advice on contraception, Z97.5 - Presence of (intrauterine) contraceptive device HIV Ab/Ag Today N89.8 - Other specified noninflammatory disorders of vagina, Z30.09 - Encounter for other general counseling and advice on contraception, Z97.5 - Presence of (intrauterine) contraceptive device Hepatitis C Antibody Today N89.8 - Other specified noninflammatory disorders of vagina, Z30.09 - Encounter for other general counseling and advice on contraception, Z97.5 - Presence of (intrauterine) contraceptive device Syphilis Screen Today N89.8 - Other specified noninflammatory disorders of vagina, Z30.09 - Encounter for other general counseling and advice on contraception, Z97.5 - Presence of (intrauterine) contraceptive device Medications: New miconazole nitrate 2% (Miconazole-7) Is internally and or externally as needed for vaginal yeast infection symptoms. 1 appful vaginal BEDTIME 7 days 45 grams 2RF Coding Level of Care Code Est Pt Level 3 (55800) Diagnoses IUD (intrauterine device) in place Z97.5 Problematic vaginal discharge N89.8 control counseling Z30.09 Vaginal itching N89.8
--- OUTSIDE RECORDS SUMMARY | 2024-10-19 14:12 | XMS_ITS | Encounter Summary ---
Author Organization [employer] Address [address] 7[address] [place] [address] Care Team Providers Care Interior Plant Caretaker Name Role Phone Leighann Busby Primary Care Provider [phone] Reason for Visit * Reason Onset Date Comments Chart Prep 09/26/2024 Encounter Details Date Type Department Care Team ([facility] st Contact Info) Description 09/26/2024 Telephone [facility] [address] [place], [place] [phone] Leighann Busby ANP [address] [place], [place] [phone] Chart Prep Social History Tobacco Use Types Packs/Day Years Used Date Smoking Tobacco: Never Passive Smoke Exposure: Never Smokeless Tobacco: Never Alcohol Use Standard Drinks/Week Comments Never 0 (1 standard drink = 0.6 oz pur e alcohol) Depression Answer Date Recorded Patient Health Questionnaire-9 Score 1 08/21/2022 Housing Stability Answer Date Recorded What is your housing situation today? I have beatriz ayala 07/21/[address] you li ve. Do you have problems with any of the following? None of the above 07/21/2024 Food Insecurity Answer Date Recorded Within the past 12 months, y ou worried that your food would run out before you got money to buy more: Never True 07/21/2024 Within the past 12 months,th e food you bought just didn't last and you didn't have enough money to get more: Never True Transportation Answer Date Recorded In the past 12 months, has l ack of transportation kept you from medical appts, meetings, work or from getting things needed for daily living? No 07/21/2024 Utilities Answer Date Recorded In the past 12 months, has t he electric, gas, oil or water company threatened to shut off services in your home? No 07/21/2024 Depression Answer Date Recorded Patient Health Questionnaire-2 Score 0 08/21/2022 Internet Access Answer Date Recorded Internet Access Q1 Yes 07/21/2024 Internet Access Q2 Not on file 07/21/2024 Comments Unknown Sex and Gender Information Value Date Recorded Sex Assigned at Female 05/26/2022 10:21 AM EDT Legal Sex Female 10:21 AM EDT Gender Identity Female 05/26/2022 10:21 AM EDT Sexual Orientation Straight 05/26/2022 10 :21 AM EDT documented as of this encounter Miscellaneous Notes * Telephone Encounter - Wendi Lockett MA - 09/26/2024 3:06 PM EST Chart Prep Labs: done Images: not applicable Vaccines due: Covid Due, Hep B Due, and Flu Due Referrals: Not Applicable Screenings: Not Applicable Overdue care gaps: Sbirt and PHQ-9 documented in this encounter Plan of Treatment Upcoming Encounters Date Type Department Care Team (Late st Contact Info) Description 11/04/2024 2:30 PM EDT Office Visit [facility] [address] [place] [address] Leighann Busby ANP [address] [place] [address] documented as of this encounter Visit Diagnoses Not on filedocumented in this encounter Additional Health Concerns Assessment Noted Time PHQ-9 Depression Total Score: 1 08/21/19 23 11:58 AM EST documented as of this encounter Care Teams Interior Plant Caretaker Relationship Specialty Start Date End Date Leighann Busby ANP [address] [place] [address] PCP - General Family Medicine 09/28/20 documented as of this encounter
--- OUTSIDE RECORDS SUMMARY | 2024-10-19 14:12 | XMS_ITS | Encounter Summary ---
Author Organization [employer] Address [address] [facility] 7t [place] [address] Care Team Providers Care Wedding Consultant Name Role Phone Leighann Busby Primary Care Provider [phone] Reason for Visit * Reason Comments Pre-visit Planning Pre-visit planning - LVM Encounter Details Date Type Department Care Team ([facility] st Contact Info) Description 09/20/2024 Patient Outreach [facility] [address] [place], [place] [phone] Leighann Busby ANP [address] [place] [address] Pre-visit Planning (Pre-visit planning - LVM ) Social History Tobacco Use Types Packs/Day Years [...] AM EDT documented as of this encounter Progress Notes * Marva Vides - 09/20/2024 10:37 AM EST MARIUM Tan placed outbound call to patient to complete pre-visit planning. No answer at this time. Patient name and were not confirmed. CC left voicemail requesting return call. Direct contact information provided. documented in this encounter Plan of Treatment Upcoming Encounters Date Type Department Care Team (Late st Contact Info) Description 11/04/2024 2:30 PM EDT Office Visit [facility] [address] [place] [phone] Leighann Busby ANP [address] [place] [address] documented as of this encounter Visit Diagnoses Not on filedocumented in this encounter Additional Health Concerns Assessment Noted Time PHQ-9 Depression Total Score: 1 08/21/19 23 11:58 AM EST documented as of this encounter Care Teams Wedding Consultant Relationship Specialty Start Date End Date Leighann Busby ANP [address] [place] [phone] PCP - General Family Medicine 09/28/20 documented as of this encounter
--- OUTSIDE RECORDS SUMMARY | 2024-10-19 14:12 | XMS_ITS | Encounter Summary ---
Author Organization [employer] Address [address] [facility] 7t [place] [address] Care Team Providers Care Bulk Sealer Name Role Phone Leighann Busby Primary Care Provider [phone] Encounter Details Date Type Department Care Team ([facility] st Contact Info) Description 08/07/2023 Orders Only [facility] [address] [place] [address] Leighann Busby ANP [address] [place] [address] Social History Tobacco Use Types Packs/Day Years Used Date Smoking Tobacco: Never Smokeless Tobacco: Never Alcohol Use Standard Drinks/Week Comments Never 0 (1 standard drink = 0.6 oz pur e alcohol) Depression Answer Date Recorded Patient Health Questionnaire-9 Score 1 08/21/2022 Housing Stability Answer Date Recorded What is your housing situation today? I have beatriz ayala 05/25/[address] you li ve. Do you have problems with any of the following? None of the above 05/25/2023 Food Insecurity Answer Date Recorded Within the past 12 months, y ou worried that your food would run out before you got money to buy more: Never True 05/25/2023 Within the past 12 months,th e food you bought just didn't last and you didn't have enough money to get more: Never True Transportation Answer Date Recorded In the past 12 months, has l ack of transportation kept you from medical appts, meetings, work or from getting things needed for daily living? No 05/25/2023 Utilities Answer Date Recorded In the past 12 months, has t he electric, gas, oil or water company threatened to shut off services in your home? No 05/25/2023 Depression Answer Date Recorded Patient Health Questionnaire-2 Score 0 08/21/2022 Comments Unknown Sex and Gender Information Value Date Recorded Sex Assigned at Female 05/26/2022 10:21 AM EDT Legal Sex Female 10:21 AM EDT Gender Identity Female 05/26/2022 10:21 AM EDT Sexual Orientation Straight 05/26/2022 10 :21 AM EDT documented as of this encounter Plan of Treatment Upcoming Encounters Date Type Department Care Team (Late st Contact Info) Description 11/04/2024 2:30 PM EDT Office Visit [facility] [address] [place] [address] Leighann Busby ANP [address] [place] [address] documented as of this encounter Visit Diagnoses Not on filedocumented in this encounter Additional Health Concerns Assessment Noted Time PHQ-9 Depression Total Score: 1 08/21/19 23 11:58 AM EST documented as of this encounter Care Teams Bulk Sealer Relationship Specialty Start Date End Date Leighann Bsuby ANP [address] [place] [phone] PCP - General Family Medicine 09/28/20 documented as of this encounter
--- OUTSIDE RECORDS SUMMARY | 2024-10-19 14:12 | XMS_ITS | Encounter Summary ---
Author Organization [employer] Address [address] [facility] 7t [place] [address] Care Team Providers Care Design Transferrer Name Role Phone Leighann Busby KIMBERLI Primary Care Provider [phone] Encounter Details Date Type Department Care Team ([facility] st Contact Info) Description 10/07/2024 Population Health Risk Score [facility] (C3) Department [address] [facility] [address] [place] [phone] Provider, Population Health Generic Social History Tobacco Use Types Packs/Day Years [...] Description 11/04/2024 2:30 PM EDT Office Visit [facility] MED[facility] [address] [place] [address] Leighann Busby ANP 230 [place] [address] documented as of this encounter Visit Diagnoses Not on filedocumented in this encounter Additional Health Concerns Assessment Noted Time PHQ-9 Depression Total Score: 1 08/21/19 23 11:58 AM EST documented as of this encounter Care Teams Design Transferrer Relationship Specialty Start Date End Date Leighann Busby ANP [address] [place] [address] PCP - General Family Medicine 09/28/20 documented as of this encounter
--- OUTSIDE RECORDS SUMMARY | 2024-10-19 14:12 | XMS_ITS | Clinical Summary ---
Author Organization [employer] Address [address] [facility] 7t [place] [address] Care Team Providers Care Auto Body Detailer Name Role Phone Milagros Medina KIMBERLI Primary Care Provider [phone] Allergies No known active allergies Medications * This document contains information received from the source organization and may not represent a complete record from that organization. doxycycline (Monodox) 100 MG capsule Take 100 mg by mouth 2 times daily. 3 Active metroNIDAZOLE (Flagyl) 500 MG tablet TAKE 1 TABLET BY MOUTH TWICE A DAY FOR 2 WEEKS 3 Active Fluocinolone Acetonide Scalp 0.01 % oilIndications: Seborrheic dermatitis For 14d - Apply thin film to scalp, massage thoroughly into wet or dampened hair/scalp; cover with shower cap. Leave on overnight (at least 4 hours). Remove by washing hair. 118 mL 3 Active ketoconazole (Nizoral) 2 % shampooIndicati ons:Seborrheic dermatitis Apply topically 2 (two) times a week. 120 mL 3 3 Active fluticasone (Flonase Allergy Relief) 50 MCG/ACT nasal sprayIndication s:Nasal congestion Administer 1 spray into each nostril 2 times daily for 7 days, THEN 1 spray in the morning. Shake gently. Before first use, prime pump. After use, clean tip and replace cap.. 16 g 1 4 Active Active Problems Problem Noted Date Diagnosed Date Pain of finger of left hand 08/09/2024 Assessment & Plan (08/09/2024 5:49 PM EST): Pain due to injury 3 days ago. Improving. Agree ok to return to work without restrictions but will check xray to be sure MCP intact. Pt agrees with the plan. WALI (generalized anxiety disorder) 12/26/2022 Assessment & Plan (12/26/2022 8:58 AM EDT): Assessment: Patient with feeling on edge, not able to stop worrying, worrying about many things at once, trouble relaxing, restlessness, and irritated at times. Angelina reports she also experiences panic attacks (becoming sweaty, shaking, pressure in chest and unable to focus) with the average being 2 times a week. Symptoms began to worsen one year ago. Presentation in the context that last year she was employed in an unhealthy environment, her biological father attempted to reconnect, and history of anxiety. Patient will benefit from OP therapy and psychopharmacology services. At this time, Angelina is only interested in psychopharmacology services. PCP will begin patient on medication until she is connected to psychopharmacology services. Angelina was educated on coping techniques including mindfulness, grounding, deep breathing. At this time Angelina Saeed meets criteria for Visit Diagnoses: Problem List Items Addressed This Visit Other WALI (generalized anxiety disorder) Patient ready to address current needs Yes Strengths include being communicative PLAN: 1. Follow up with C: Not recommended for follow-up 2. Patient goal is psychopharmacology service 3. Behavioral Recommendations a. Patient will comply with medication thru PCP b. Patient will utilize coping techniques c. Patient will engage in psychopharmacology services, once established d. Patient will request a [facility] during next PCP visit, if needed Mixed anxiety and depressive disorder 10/18/2015 Uterine tenderness 04/11/2015 Vaginal discharge 04/11/2015 Female stress incontinence 04/03/2015 Right lower quadrant pain 04/03/2015 Encounters Date Type Department Care Team Description 10/07/2024 Population Health Risk Score [facility] (C3) Department [address] [phone] Provider, Population Health Generic 09/26/2024 Telephone [facility] [address] [place] [address] Milagros Medina, KIMBERLI Chart Prep 09/20/2024 Patient Outreach [facility] [address] [place] [address] Milagros Medina ANP Pre-visit Planning (Pre-visit planning - LVM ) 08/23/2024 Telephone [facility] [address] [place] [address] Hien Baron MD Imaging Orders 08/09/2024 5:20 PM EST Office Visit [facility] [address] [place] [phone] Hien Baron MD Pain of finger of left hand (Primary Dx) 08/09/2024 Travel 08/01/[address] [phone] Rosa Bautista [place] chart prep 07/21/2024 Patient Outreach [address] [address] Milagros Medina ANP Pre-visit Planning (SDOH Screening negative and Tobacco screening negative) from Last 3 Months Immunizations Name Administration Dates Next Due DTaP 07/21/2013 HPV, Quadrivalent 11/19/2011,10/15/2010 Hep B, adult 05/10/2015,04/05/2015 Influenza injectable quadriv alent preservative free 04/09/2015,07/21/2013 Influenza, IIV3, injectable 05/16/2021 MMR 04/05/2015,07/21/2013 Pfizer Covid-19 Vaccine 12+ 05/16/2021,,08/05/2020 Tdap 12/29/2017,10/15/2010 Varicella 04/06/2015 Social History Tobacco Use Types Packs/Day Years Used Date Smoking Tobacco: Never Passive Smoke Exposure: Never Smokeless Tobacco: Never Tobacco Cessation:Counseling Given: Not Answered Alcohol Use Standard Drinks/Week Comments Never 0 [...] Orientation Straight 05/26/2022 10 :21 AM EDT Last Filed Vital Signs Vital Sign Reading Time Taken Comments Blood Pressure 110/76 08/09/2024 4:55 PM EST Pulse 82 08/09/2024 4:55 PM EST Temperature 36.7 ??C (98.1 ??F) 08/09/2024 4:55 PM ES T Respiratory Rate 17 08/09/2024 4:55 PM EST Oxygen Saturation 97% 09/21/2023 8:54 AM EST Inhaled Oxygen Concentration - - Weight 79 kg (174 lb 4 oz) 08/09/2024 4:55 PM ES T Height 158.8 cm (5' 2.5 ) 08/09/2024 4:55 PM EST Body Mass Index 31.36 08/09/2024 4:55 PM EST Plan of Treatment Upcoming Encounters Date Type Department Care Team (Late st Contact Info) Description 11/04/2024 2:30 PM EDT Office Visit [facility] [address] [place] [address] Milagros Medina ANP [address] [place], [place] [phone] Health Maintenance Due Date Last Done Comments Alcohol/Substance Use Screening 2003 Family Planning (PISQ) 2006 HPV Vaccines (3 - 3-dose series) 02/11/2012 11/19/2011, 10/15/2010 Hepatitis B Vaccines (3 of 3 - 19+ 3-dose series) 10/04/2015 05/10/2015, 04/05/2015 Depression Screening 08/21/2023 08/21/2022, 08/21/2022 COVID-19 Vaccine (4 - 2023-2 5 season) 2024 05/16/2021, 08/26/2020, 08/05/2020 Influenza Vaccine (#1) 2024 , 04/09/2015, 07/21/2013 SDOH Screening 07/21/2025 07/21/2024 Tobacco Screening 08/09/2025 08/09/2024 Pap Smear 11/04/2025 11/04/2022 Cervical Cancer Screening 11/05/2027 HPV/Cotest 11/05/2027 11/04/2022 DTaP/Tdap/Td Vaccines (4 - T d or Tdap) 12/30/2027 12/29/2017, 07/21/2013, 10/15/2010 Zoster Vaccines (1 of 2) 2041 RSV Patients and Patients Aged 60 years or older (1 - 1-dose 75+ series) 2066 HIV Screening Completed 10/14/2021, 11/29/2020, 10/09/2020 Hepatitis C Screening Completed 10/14/2021 , 10/09/2020 HIB Vaccines Aged Out No longer eligi ble based on patient's age to complete this topic Hepatitis A Vaccines Aged Out No long er eligible based on patient's age to complete this topic IPV Vaccines Aged Out No longer eligi ble based on patient's age to complete this topic Meningococcal Vaccine Aged Out No sonya dayton eligible based on patient's age to complete this topic Pneumococcal Vaccine: Pediatrics (0 to 5 Years) and At-Risk Patients (6 to 49) Years) Aged Out No longer eligible b ased on patient's age to complete this topic RSV under 20 months Aged Out No longe r eligible based on patient's age to complete this topic Rotavirus Vaccines Aged Out No longer eligible based on patient's age to complete this topic Procedures Procedure Name Priority Date/Time Associated Diagnosis Comments HPV MRNA E6/E7 REFLEX TO HPV 16, 18/45 Routine 11/04/2022 2:59 PM EDT PAP SMEAR Routine 11/04/2022 2:59 PM EDT ZZZ HISTORICAL HEPATITIS C AB W/REFL TO HCV RNA, QN, PCR Routine 10/14/2021 11:09 AM EDT HIV 1/2 ANTIGEN/ANTIBODY, FOURTH GENERATION W/RFL Routine 10/14/2021 11:09 AM EDT from Last 3 Months or Most Recently Relevant to Health Maintenance Results * HPV mRNA E6/E7 w/Reflex to HPV Genotypes 16, 18/45 (11/04/2022 2:59 PM EDT) HPV nRNA E6/E7 Not Detected Not Detected [facility] Comment:Methodology: Transcr iption-Mediated AmplificationThis assay detects E6/E7 viral messenger RNA (mRNA) from 14high-risk HPV types (16,18,31,33,35,39,45,51,52,56,58,59,66,68).Cervical sources are required for HPV testing.If a vaginal source from a patient who has had atotal hysterectomy with removal of cervix wassubmitted, please contact the testing laboratoryfor alternative testing options.For additional information, please refer tohttp://education.Shopmium/faq/HTU199w4(This link if provided for information/educational purposes only.)THIS TEST WAS PERFORMED AT:[facility] [place] [id number] FRASER MD HPV mRNA E6/E7 [facility] HPV 16 RNA [facility] HPV 18/45 RNA [facility] 11/04/2022 2:59 PM EDT 11/05/2022 9:45 AM EDT us [facility] External Provider LAB CYT OLSHWETA ORDERABLES Final Result [facility] [address] [place] [address] [phone] * Pap Smear (11/04/2022 2:59 PM EDT) 11/04/2022 2:59 PM EDT 11/05/2022 9:45 AM EDT Narrative [facility] - 11/10/2022 12:10 PM EDT ----- ------- Name: Angelina Cabrera ? Age/Sex: 32/F ? : 1990 Unit#: [id number] ?? Attend Dr: Ena Jimenez CNM ?Re11/04/22 ?Status: DEP REF ? Location: HO.LNP ?Disch: ? ----- ------- SPEC : [id number] ? RECD: 04/12/23-0945 ? STATUS: ??SOUT ? REQ NUM: [id number] ? JOHNY: 11/04/22-1459 ? SUBM DR: Ena Jimenez CNM ? ENTERED: ??11/05/22-1000 ?SP TYPE: Pap Smr ?OTHR DR: MILAGROS MEDINA NP ? ORDERED: ??Pap Smear ? Interpretation ?? Satisfactory for evaluation. ?? Negative for intraepithelial lesion or malignancy. ? HPV mRNA E6/E7: ?NOT DETECTED ? This assay detects E6/E7 viral messenger RNA (mRNA) from 14 high-risk HPV types (16, 18, ?? 31, 33, 35, 39, 45, 51, 52, 56, 58, 59, 66, 68) ? HPV testing performed by [employer], [place], [place]. ??See reference laboratory ?? portion of the EMR for entire report. ?Clinical Information LMP: 10/20/22 Previous PAP test: 10/30/16, WNL ? Material Received ?? ThinPrep-Cervical Copies To: ?? Ena Jimenez CNM ?? [address] ?? [place] [address] ?? [phone] ?? MILAGROS MEDINA NP ?? [address] [facility] [address] [place] [address] ?? [place] [address] ?? [phone] ----- ------- Signed (signature on file) Tiffanie Soto 11/10/22 1210 ? ----- ------- ? END OF REPORT ? [facility] External Provider LAB CYT OLOGY ORDERABLES Final Result [facility] [address] [place] [phone] * HEPATITIS C AB W/REFL TO HCV RNA, QN, PCR (10/14/2021 11:09 AM EDT) HEPATITIS C ANTIBODY NON-REACT SHANNON NON-REACT [facility] INDEX 0.01 <1.00 [facility] Comment: ?? HCV antibody was non-reactive. There is no laboratory ?? evidence of HCV infection. ?? In most cases, no further action is required. However, if recent HCV exposure is suspected, a test for HCV RNA (test code 08941) is suggested. ?? For additional information please refer to http://education.Shopmium/faq/SUV46f1 (This link is being provided for informational/ educational purposes only.) ?? 10/14/2021 11:0 9 AM EDT Milagros Medina ANP HISTORICAL/NON ORDERABLE LABS Fi nal Result Performing Organization Address [facility] Phone Number [facility] [address] * HIV 1/2 ANTIGEN/ANTIBODY,FOURTH GENERATION W/RFL (10/14/2021 11:09 AM EDT) HIV-1/2 ANTIGEN AND ANTIBODIES, 4TH GENERATION W/ REFLEX NON-REACT SHANNON NON-REACT SHANNON [facility] Comment: HIV-1 antigen and HIV-1/HIV-2 antibodies were not detected. There is no laboratory evidence of HIV infection. ?? PLEASE NOTE: This information has been disclosed to you from records whose confidentiality may be protected by state law. ??If your state requires such protection, then the state law prohibits you from making any further disclosure of the information without the specific written consent of the person to whom it pertains, or as otherwise permitted by law. A general authorization for the release of medical or other information is NOT sufficient for this purpose. ? For additional information please refer to http://education.Shopmium/faq/OIS675 (This link is being provided for informational/ educational purposes only.) ? The performance of this assay has not been clinically validated in patients less than 2 years old. ?? 10/14/2021 11:0 9 AM EDT Milagros Medina ANP LAB BLOOD ORDERABLES Final Resul t Performing Organization Address [facility] Phone Number [facility] [address] from Last 3 Months or Most Recently Relevant to [place] [address] [employer] Care Teams Auto Body Detailer Relationship Specialty Start Date End Date Milagros Medina ANP [address] [place] [phone] PCP - General Family Medicine 09/28/20
== END 2024-10-19 12:52 | disposition home or self-care (01) ==
LOC: HO.HWSM 11:41
PROVIDERS: PCP Nurse Practitioner Primary Care; Visit Provider Advanced Practice Midwife
DX: Z97.5 Presence of (intrauterine) contraceptive device (principal); N89.8 Other specified noninflammatory disorders of vagina; Z30.09 Encounter for other general counseling and advice on contraception
CPT/HCPCS: 99213

== ENCOUNTER 2024-10-19 13:28 | Outpatient (REF) | payer MEDICAID, SELFPAY ==
[2024-10-19 16:06] LABS: MANUAL DIFF FLAG NO
[2024-10-19 16:27] LABS: Basophils Percent Auto 0.3 % (0-2); Eosinophils Percent Auto 0.5 % (0-4); Hematocrit 39.5 % (37.0-47.0); Hemoglobin 13.1 g/dl (12.0-16.0); Imm Gran Abs Auto 0.02 X10*3/uL (0.00-0.03); Imm Gran Pct Auto 0.3 % (0.0-0.4); Lymphocytes Absolute Auto 1.2 X10*3/uL (1.2-4.9); Lymphocytes Percent Auto 18.7 % (20-40); Mean Corpuscular HGB Conc 33.2 g/dl (31.0-35.0); Mean Corpuscular Hemoglobin 31.5 pg (27.0-33.0); Mean Platelet Volume 11.6 fL (9.4-12.3); Monocytes Absolute Auto 0.7 X10*3/uL (0.1-1.2); Monocytes Percent Auto 11.4 % (2-11); Neutrophils Absolute Auto 4.2 x10*3/uL (2.0-8.3); Neutrophils Percent Auto 68.8 % (45-73); Platelet Count 245 X10*3/uL (160-400); Red Blood Count 4.16 X10*6/uL (4.20-5.50); Red Cell Distribution Width 12.1 % (11.0-16.0); White Blood Count 6.2 X10*3/uL (4.8-10.8)
[2024-10-19 16:48] LABS: Alanine Aminotransferase 15 U/L (0-31); Alkaline Phosphatase 44 U/L (39-117); Anion Gap 8 (12-20); Aspartate Amino Transferase 20 U/L (5-31); Bilirubin Total 0.5 mg/dL (0.0-1.0); Blood Urea Nitrogen 8 mg/dL (9-16); Calcium 8.7 mg/dL (8.4-10.2); Carbon Dioxide 26 mmol/L (22-29); Chloride 111 mmol/L (96-108); Estimated Glomerular Filt Rate > 60; Glucose Random 84 mg/dL (60-115); Potassium 3.7 mmol/L (3.3-5.1); Sodium 141 mmol/L (135-145); Total Protein 6.8 g/dL (6.5-8.0)
[2024-10-19 17:02] LABS: TSH reflex Free T4 0.24 uIU/mL (0.32-4.0)
[2024-10-19 18:01] LABS: Free T4 (Free Thyroxine) 0.99 ng/dL (0.71-1.85)
== END 2024-10-19 13:29 | disposition home or self-care (01) ==
LOC: HO.HHCL 13:28
PROVIDERS: Nurse Practitioner Primary Care; Visit Provider Advanced Practice Midwife
DX: R53.83 Other fatigue (principal)
CPT/HCPCS: 36415; 80053; 84439; 84443; 85025

== ENCOUNTER 2025-01-13 14:36 | Outpatient (REF) | payer MEDICAID, SELFPAY ==
--- OUTSIDE RECORDS SUMMARY | 2025-01-13 14:39 | XMS_ITS | Clinical Summary ---
Author Organization [employer] Address [address] [facility] [address] [place] [address] Care Team Providers Care Entry Level Marketing Assistant Name Role Phone Kehinde Milagros AG Primary Care Provider Allergies No known active allergies Medications * This document contains information received from the source organization and may not represent a complete record from that organization. fluticasone (Flonase Allergy Relief) 50 MCG/ACT nasal sprayIndication s:Nasal congestion Administer 1 spray into each nostril 2 times daily for 7 days, THEN 1 spray in the morning. Shake gently. Before first use, prime pump. After use, clean tip and replace cap.. 16 g 1 4 Active ketoconazole (Nizoral) 2 % shampooIndicati ons:Seborrheic dermatitis Apply topically 2 (two) times a week. 240 mL 3 5 Active Fluocinolone Acetonide Scalp 0.01 % oilIndications: Seborrheic dermatitis Apply thin film to scalp, massage thoroughly into wet or dampened hair/scalp; cover with shower cap. Leave on overnight (at least 4 hours). Remove by washing hair. 118 mL 5 Active HPV 9-valent (Gardasil 9) 0.5 mL suspension vaccine 1 dose IM x 2 as directed 0.5 mL 1 5 Active Active Problems Problem Noted Date Diagnosed [...] being communicative PLAN: 1. Follow up with [facility]: Not recommended for follow-up 2. Patient goal is psychopharmacology service 3. Behavioral Recommendations a. Patient will comply with medication thru PCP b. Patient will utilize coping techniques c. Patient will engage in psychopharmacology services, once established d. Patient will request a [facility] during next PCP visit, if needed Mixed anxiety and depressive disorder 10/18/2015 Uterine tenderness 04/11/2015 Vaginal discharge 04/11/2015 Female stress incontinence 04/03/2015 Right lower quadrant pain 04/03/2015 Encounters * This document contains information received from the source organization and may not represent a complete record from that organization. Date Type Department Care Team Description 11/04/2024 2:30 PM EDT Office Visit [facility] [address] [place] [phone] Milagros Medina, KIMBERLI WALI (generalized anxiety disorder) (Primary Dx); Seborrheic dermatitis; Low TSH level; Continuous leakage of urine; Diffuse non-cyclical breast pain; Healthcare maintenance 11/04/2024 Travel 11/03/2024 Telephone [facility] [address] [place] [address] Rosa Bautista MA chart prep 10/24/2024 Patient Outreach [facility] [address] [place] [address] Milagros Medina ANP Pre-visit Planning (SDOH Screening negative and Tobacco screening negative) 10/20/2024 Telephone [facility] [address] [place] [phone] Ena Walter, EVELIA Results 10/19/2024 Orders Only [facility] [address] [place] [address] [phone] Milagros Medina ANP Low TSH level (Primary Dx) from Last 3 Months Immunizations Immunization Administration Dates Next Due DTaP 07/21/2013 HPV, [...] your housing situation today? I have beatriz lucy 07/21/[address] you li [...] Sign Reading Time Taken Comments Blood Pressure 124/74 11/04/2024 2:52 PM EDT Pulse 92 11/04/2024 2:52 PM EDT Temperature 36.7 C (98.1 F) 11/04/2024 2:52 PM EDT Respiratory Rate 14 11/04/2024 2:52 PM EDT Oxygen Saturation 99% 11/04/2024 2:52 PM EDT Inhaled Oxygen Concentration - - Weight 75.6 kg (166 lb 9.6 oz) 11/04/2024 2:52 P M EDT Height 158.8 cm (5' 2.5 ) 08/09/2024 4:55 PM EST Body Mass Index 29.99 08/09/2024 4:55 PM EST Plan of Treatment Upcoming Encounters Date Type Department Care Team (Late st Contact Info) Description 02/24/2025 11:15 AM EDT Office Visit [facility] [address] [place] [address] Milagros Medina ANP [address], [place] [phone] Health Maintenance Due Date Last Done Comments Disability Screening 1990 Family Planning (PISQ) 2006 HPV Vaccines (3 - 3-dose series) 02/11/2012 11/19/2011, 10/15/2010 Hepatitis B Vaccines (3 of 3 - 19+ 3-dose series) 10/04/2015 05/10/2015, 04/05/2015 Depression Screening 08/21/2023 08/21/2022, 08/21/19 23 COVID-19 Vaccine (4 - season) 2024 05/16/2021, 08/26/2020, 08/05/2020 Influenza Vaccine (Season Ended) 2025 05/16/2021, 04/09/2015, 07/21/2013 SDOH Screening 10/24/2025 10/24/2024 Alcohol/Substance Use Screening 11/04/2025 11/04/2024 Pap Smear 11/04/2025 11/04/2022 Tobacco Screening 11/04/2025 11/04/2024 Cervical Cancer Screening 11/05/2027 HPV/Cotest 11/05/2027 11/04/2022 DTaP/Tdap/Td Vaccines (4 - Td or Tdap) 12/30/2027 12/29/2017, 07/21/2013, 10/15/2010 Zoster Vaccines (1 of 2) 2041 RSV Patients and Patients Aged 60 years or older (1 - 1-dose 75+ series) 2066 HIV Screening Completed 10/19/2024, 09/25, 11/29/2020, Additional history exists Hepatitis C Screening Completed 10/19/2024 , 10/14/2021, 10/09/2020 HIB Vaccines Aged Out No longer eligi ble based on patient's age to complete this topic Hepatitis A Vaccines Aged Out No long er eligible based on patient's age to complete this topic IPV Vaccines Aged Out No longer eligi ble based on patient's age to complete this topic Meningococcal B Vaccine Aged Out No l onger eligible based on patient's age to complete this topic Meningococcal Vaccine Aged Out No sonya dayton eligible based on patient's age to complete this topic Pneumococcal Vaccine: Pediatrics (0 to 5 Years) and At-Risk Patients (6 to 49) Years Aged Out No longer eligible based on patient's age to complete this topic RSV under 20 months Aged Out No longe r eligible based on patient's age to complete this topic Rotavirus Vaccines Aged Out No longer eligible based on patient's age to complete this topic Procedures Procedure Name Priority Date/Time Associated Diagnosis Comments CHLAMYDIA/N. GONORRHOEAE RNA, TMA, UROGENITAL Routine 10/19/2024 1:42 PM EDT Low TSH level HEPATITIS B SURFACE ANTIGEN, EIA Routine 10/19/2024 1:36 PM EDT Low TSH level HIV 1/2 ANTIGEN/ANTIBODY, FOURTH GENERATION W/RFL Routine 10/19/2024 1:36 PM EDT Low TSH level HEPATITIS C ANTIBODY Routine 10/19/2024 1:36 PM EDT Low TSH level SYPHILIS SCREEN Routine 10/19/2024 1:36 PM EDT Low TSH level T4, FREE Routine 10/19/2024 1:36 PM EDT Low TSH level COMPREHENSIVE METABOLIC PANEL Routine 10/19/2024 1:36 PM EDT Fatigue, unspecified type TSH W/REFLEX TO FT4 Routine 10/19/2024 1 :36 PM EDT Fatigue, unspecified type CBC WITH AUTO DIFFERENTIAL Routine 10/19/2024 1:36 PM EDT Fatigue, unspecified type BACTERIAL VAGINOSIS PANEL Routine 10/19/2024 12:00 AM EDT Low TSH level HPV MRNA E6/E7 REFLEX TO HPV 16, 18/45 Routine 11/04/2022 2:59 PM EDT PAP SMEAR Routine 11/04/2022 2:59 PM EDT from Last 3 Months or Most Recently Relevant to Health Maintenance Results * Chlamydia/N. Gonorrhoeae RNA, TMA, Urogenitial (10/19/2024 1:42 PM EDT) CT PCR NOT DETECTED Not Detect. [facility] Comment:A not detected test result does not exclude the possibilityof infection because test results can be affected byimproper specimen collection, concurrent antibiotic therapy,or the number of organisms in the specimen which may bebelow the sensitivity of the test. As with many diagnostictests, results from the Xpert CT/NG assay should beinterpreted in conjunction with other laboratory andclinical data available to the clinician.Xpert CT/NG performance has not been evaluated in patientsless than 14 years of age. The assay should not be used forthe evaluationof suspected sexual abuse or for other medico-legalindications. Additional testing is recommended in anycircumstance when false positive or false negative resultscould lead to adverse medical, social or psychologicalconsequences. NG PCR NOT DETECTED Not Detect. [facility] Comment:A not detected test result does not exclude the possibilityof infection because test results can be affected byimproper specimen collection, concurrent antibiotic therapy,or the number of organisms in the specimen which may bebelow the sensitivity of the test. As with many diagnostictests, results from the Xpert CT/NG assay should beinterpreted in conjunction with other laboratory andclinical data available to the clinician.Xpert CT/NG performance has not been evaluated in patientsless than 14 years of age. The assay should not be used forthe evaluationof suspected sexual abuse or for other medico-legalindications. Additional testing is recommended in anycircumstance when false positive or false negative resultscould lead to adverse medical, social or psychologicalconsequences. 10/19/2024 1:42 PM EDT 10/19/2024 6:04 PM EDT Narrative [facility] - 10/19/2024 9:51 PM EDT Urine us Generic External Data Provider LAB MICROBIOLOGY - GENERAL ORDERABLES Final Result [facility] [address] [place] [phone] * Syphilis Screen (10/19/2024 1:36 PM EDT) Syphilis Screen Nonreactive Nonreactive [facility] 10/19/2024 1:36 PM EDT 10/19/2024 4:04 PM EDT Generic External Data Provider LAB BLOOD ORDERAB LES Final Result Performing Organization Address [facility] Co de Phone Number [facility] [address] [place] [phone] * Hepatitis C Ab (10/19/2024 1:36 PM EDT) [facility] Hepatitis C Antibody Nonreactive Nonreactive [facility] Comment:Antibodies to HCV no t detected; does not exclude early acuteHCV infection. 10/19/2024 1:36 PM EDT 10/19/2024 4:04 PM EDT [facility] External Data Provider LAB BLOOD ORDERAB LES Final Result Performing Organization Address [facility] de Phone Number [facility] [address] [place] [phone] * (ABNORMAL) TSH W/Reflex to FT4 (10/19/2024 1:36 PM EDT) [facility] TSH reflex Free T4 0.24(L) 0.32 - 4.0 uIU/mL [facility] Blood Venous blood specimen / Unknown 10/19/2024 1:36 PM EDT 10/19/2024 4:04 PM EDT [facility] LAB BLOOD ORDERABLES Final Resul t Performing Organization Address [facility] Co de Phone Number [facility] [address] [place] [phone] * (ABNORMAL) CBC auto differential (10/19/2024 1:36 PM EDT) [facility] White Blood Count 6.2 4.8 - 10.8 X10*3/uL [facility] Red Blood Count 4.16(L) 4.20 - 5.50 X10*6/uL [facility] Hemoglobin 13.1 12.0 - 16.0 g/dl [facility] Hematocrit 39.5 37.0 - 47.0 % [facility] Mean Corpuscular Volume 95.0 80.0 - 98.0 fL [facility] Mean Corpuscular Hemoglobin 31.5 27.0 - 33.0 pg [facility] Mean Corpuscular HGB Conc 33.2 31.0 - 35.0 g/dl [facility] Red Cell Distribution Width 12.1 11.0 - 16.0 % [facility] Platelet Count 245 160 - 400 X10*3/uL [facility] Mean Platelet Volume 11.6 9.4 - 12.3 fL [facility] Neutrophils Percent Auto 68.8 45 - 73 % [facility] Imm Gran Pct Auto 0.3 0.0 - 0.4 % [facility] Lymphocytes Percent Auto 18.7(L) 20 - 40 % [facility] Monocytes Percent Auto 11.4(H) 2 - 11 % [facility] Eosinophils Percent Auto 0.5 0 - 4 % [facility] Basophils Percent Auto 0.3 0 - 2 % [facility] NRBC Pct Auto 0.0 0.0 - 0.2 /100WBC [facility] Neutrophils Absolute Auto 4.2 2.0 - 8.3 x10*3/uL [facility] Imm Gran Abs Auto 0.02 0.00 - 0.03 X10*3/uL [facility] Lymphocytes Absolute Auto 1.2 1.2 - 4.9 X10*3/uL [facility] Monocytes Absolute Auto 0.7 0.1 - 1.2 X10*3/uL [facility] Eosinophils Absolute Auto 0.0 0.0 - 0.4 X10*3/uL [facility] Basophils Absolute Auto 0.0 0.0 - 0.2 X10*3/uL [facility] NRBC Abs Auto 0.000 0.0 - 0.012 X10*3/uL [facility] Blood Venous blood specimen / Unknown 10/19/2024 1:36 PM EDT 10/19/2024 4:04 PM EDT us Milagros Kehinde [facility] LAB BLOOD ORDERABLES Final Resul t Performing Organization Address City/[facility]/ZIP Co de Phone Number [facility] [address] [place] [phone] * Hepatitis B surface antigen, EIA (10/19/2024 1:36 PM EDT) Hepatitis B Surface Ag Negative Negative [facility] 10/19/2024 1:36 PM EDT 10/19/2024 4:04 PM EDT Generic External Data Provider LAB BLOOD ORDERAB LES Final Result Performing Organization Address [facility] Co de Phone Number [facility] [address] [place] [phone] [phone] * HIV-1/2 Antigen and Antibodies, Fourth Generation, with Reflexes (10/19/2024 1:36 PM EDT) [facility] HIV AB/AG Nonreactive Nonreactive [facility] Comment:HIV-1 p24 Ag and/or HIV-1/HIV-2 Ab not detected.A test result that is nonreactive does not exclude thepossibility of exposure to or infection with HIV-1 and/orHIV-2. Nonreactive results in this assay for individualswith prior exposure to HIV-1 and/or HIV-2 may be due toantigen and antibody levels that are below the limit ofdetection of this assay.The Circleni[employer]book Glue HIV Ag/Ab Combo assay result andsupplemental assay results should be interpreted inconjunction with the patient's clinical presentation,history and other laboratory results. If the results areinconsistent with clinical evidence, additional testing issuggested to confirm the result. 10/19/2024 1:36 PM EDT 10/19/2024 4:04 PM EDT us Generic External Data Provider LAB BLOOD ORDERAB LES Final Result Performing Organization Address [facility]/ZIP Co de Phone Number [facility] [address] [place] [address] [phone] * T4, Free (10/19/2024 1:36 PM EDT) Free T4 (Free Thyroxine) 0.99 0.71 - 1.85 ng/dL [facility] 10/19/2024 1:36 PM EDT 10/19/2024 4:04 PM EDT [facility] LAB BLOOD ORDERABLES Final Resul t Performing Organization Address [facility] Co de Phone Number [facility] [address] [place] [address] [phone] * (ABNORMAL) Comprehensive Metabolic Panel (10/19/2024 1:36 PM EDT) [facility] Sodium 141 135 - 145 mmol/L [facility] Potassium 3.7 3.3 - 5.1 mmol/L [facility] Chloride 111(H) 96 - 108 mmol/L [facility] Carbon Dioxide 26 22 - 29 mmol/L [facility] Anion Gap 8(L) 12 - 20 [facility] Urea Nitrogen (BUN) 8(L) 9 - 16 mg/dL [facility] Creatinine, Serum 0.63 0.5 - 1.4 mg/dL [facility] Estimated Glomerular Filt Rate >60 [facility] Comment:Chronic Kidney Disea se: Estimated GFR < 60 mL/min/1.42f7Oulmvu Kidney Disease: Estimated GFR < 15 mL/min/1.73m2 Glucose 84 60 - 115 mg/dL [facility] Calcium 8.7 8.4 - 10.2 mg/dL [facility] Bilirubin, Total 0.5 0.0 - 1.0 mg/dL [facility] Aspartate Amino Transferase 20 5 - 31 U/L [facility] Alanine Aminotransferase 15 0 - 31 U/L [facility] Total Protein 6.8 6.5 - 8.0 g/dL [facility] Albumin Level 4.0 3.5 - 5.0 g/dL [facility] Alkaline Phosphatase 44 39 - 117 U/L [facility] Blood Venous blood specimen / Unknown 10/19/2024 1:36 PM EDT 10/19/2024 4:04 PM EDT Milagros [facility] LAB BLOOD ORDERABLES Final Resul t Performing Organization Address City/[facility]/ZIP Co de Phone Number [facility] [address] [place] [phone] * (ABNORMAL) Bacterial Vaginosis (10/19/2024 12:00 AM EDT) TRICHOMONAS VAGINALIS DETECTION BY PCR NOT DETECTED Not Detect [facility] BACTERIAL VAGINOSIS DETECTION BY PCR NEGATIVE Negative [facility] Comment:The BV organism targ ets of the Xpert Xpress MVP test can becommensal in women; Xpert Xpress MVP positive results forbacterial vaginosis should be considered in conjunction withother clinical and patient information to determine thedisease status. Organisms that are not detected by the XpertXpress MVP test have also been reported to be associatedwith BV and aerobic vaginitis.The Xpert Xpress MVP test performance has not been evaluatedin patients under the age of 14. EMMY GROUP DETECTION BY PCR DETECTED(A) Not Detect [facility] Emmy glab krusei PCR NOT DETECTED Not Detect [facility] 10/19/2024 10/19/2024 [facility] External Data Provider LAB MICROBIOLOGY - GENERAL ORDERABLES Final Result Performing Organization Address [facility]/ZIP Co de Phone Number [facility] [address] [place] [address] [phone] * HPV mRNA E6/E7 w/Reflex to HPV Genotypes 16, 18/45 (11/04/2022 2:59 PM EDT) HPV nRNA E6/E7 Not Detected Not Detected [facility] Comment:Methodology: Transcr iption-Mediated AmplificationThis assay detects E6/E7 viral messenger RNA (mRNA) from 14high-risk HPV types (16,18,31,33,35,39,45,51,52,56,58,59,66,68).Cervical sources are required for HPV testing.If a vaginal source from a patient who has had atotal hysterectomy with removal of cervix wassubmitted, please contact the testing laboratoryfor alternative testing options.For additional information, please refer [email or web address](This link if provided for information/educational purposes only.)THIS TEST WAS PERFORMED AT:[employer] [place] [phone] FRASER MD HPV mRNA E6/E7 [facility] HPV 16 RNA [facility] HPV 18/45 RNA [facility] 11/04/2022 2:59 PM EDT 11/05/2022 9:45 AM EDT [facility] External Provider LAB CYT OLOGY ORDERABLES Final Result [facility] [address] [place] [phone] * Pap Smear (11/04/2022 2:59 PM EDT) 11/04/2022 2:59 PM EDT 11/05/2022 9:45 AM EDT Narrative [facility] - 11/10/2022 12:10 PM EDT ----- ------- Name: Angelina Cabrera Age/Sex: 32/F : 1990 Unit#: [id number] Attend Dr: Ena Jimenez [facility] Re11/04/22 Status: DEP REF Location: [facility] Disch: ----- ------- SPEC : [id number] RECD: 11/05/22 STATUS: SHERI OSULLIVAN NUM: [id number] JOHNY: 11/04/22-[address]: Ena Jimenez [facility] ENTERED: 11/05/22-1000 SP TYPE: Pap Smr OTHR DR: MILAGROS MEDINA NP ORDERED: Pap Smear Interpretation Satisfactory for evaluation. Negative for intraepithelial lesion or malignancy. HPV mRNA E6/E7: NOT DETECTED This assay detects E6/E7 viral messenger RNA (mRNA) from 14 high-risk HPV types (16, 18, 31, 33, 35, 39, 45, 51, 52, 56, 58, 59, 66, 68) HPV testing performed by [employer], [place], [place]. See reference laboratory portion of the EMR for entire report. Clinical Information LMP: 10/20/22 Previous PAP test: 10/30/16, WNL Material Received ThinPrep-Cervical Copies To: Ena Jimenez [address] [place] [address] MILAGROS MEDINA NP 230 [facility] [address] [place] [address] ----- ------- Signed (signature on file) Tiffanie Soto 11/10/22 1210 ----- ------- END OF REPORT [facility] External Provider LAB CYT OLSHWETA ORDERABLES Final Result [facility] [address] [place] [address] [phone] from Last 3 Months or Most Recently Relevant to Health Maintenance Insurance [employer] Care Teams Entry Level Marketing Assistant Relationship Specialty Start Date End Date Milagros Medina ANP [address] [place] [address] PCP - General Family Medicine 09/28/20
[2025-01-13 16:45] LABS: TSH reflex Free T4 0.82 uIU/mL (0.32-4.0)
[2025-01-16 18:54] LABS: Thyroid Peroxidase Antibodies <1 IU/mL (<9)
== END 2025-01-13 14:37 | disposition home or self-care (01) ==
LOC: HO.HHCL 14:36
PROVIDERS: PCP Nurse Practitioner Primary Care; Visit Provider Nurse Practitioner Primary Care
DX: R79.89 Other specified abnormal findings of blood chemistry (principal)
CPT/HCPCS: 36415; 84443; 86376